=== PATIENT | female | born 1955 | race Caucasian/White ===

== ENCOUNTER → 2019-01-04 17:47 | Outpatient (CLI) | payer MEDICAID, SELFPAY ==
[2019-01-04 18:28] LABS: Amphetamine/Metha Screen,Urine Negative ng/mL (<1000); Barbiturates Screen,Urine Negative ng/mL (<200); Benzodiazepines Screen,Urine Negative ng/mL (<200); Cannabinoid Screen,Urine Negative ng/mL (<50); Cocaine Screen,Urine Negative ng/mL (<300); Methadone Screen,Urine Negative ng/mL (<300); Opiate Screen,Urine Negative ng/mL (<300); Phencyclidine Screen,Urine Negative ng/mL (<25)
== END ==
PROVIDERS: Visit Provider Physician Assistant
DX: Z79.899 Other long term (current) drug therapy (principal)
CPT/HCPCS: 80305

== ENCOUNTER → 2019-02-09 18:01 | Outpatient (CLI) | payer MEDICAID, SELFPAY ==
[2019-02-09 18:29] LABS: Basophils % 0.5 % (0.1-2.0); Eosinophils # 0.1 K/mm3 (0.0-0.4); Eosinophils % 1.5 % (0.1-12.0); Hematocrit 46.1 % (37.0-47.0); Hemoglobin 15.1 g/dL (12.2-16.2); Lymphocytes # 2.2 K/mm3 (0.7-4.5); Lymphocytes % 27.6 % (10-50); Mean Corpuscular HGB Conc 32.6 g/dL (31.8-35.4); Mean Corpuscular Hemoglobin 31.5 pg (27.0-31.2); Mean Corpuscular Volume 96.4 fl (81-99); Mean Platelet Volume 7.8 fl (7.4-10.4); Monocytes # 0.3 K/mm3 (0.1-1.0); Monocytes % 3.8 % (1.7-9.3); Neutrophils # 5.3 K/mm3 (1.8-7.8); Neutrophils % 66.7 % (37.0-80.0); Platelet Count 248 K/mm3 (142-424); Red Blood Count 4.78 M/mm3 (4.20-5.40); Red Cell Distribution Width 14.8 % (11.5-17.5)
[2019-02-09 19:40] LABS: Alanine Aminotransferase 42 U/L (12-78); Albumin/Globulin Ratio 1.1 (1.1-1.8); Alkaline Phosphatase 128 U/L (46-116); Aspartate Amino Transferase 24 U/L (15-37); Bilirubin,Total 0.2 mg/dL (0.2-1.0); Blood Urea Nitrogen 15 mg/dL (7-18); Calcium 9.7 mg/dL (8.5-10.1); Carbon Dioxide 27 mmol/L (21.0-32.0); Chloride 104 mmol/L (98-107); Chol/HDL Ratio 5.2 (1-3.5); Cholesterol 204 mg/dL (140-200); Creatinine,Serum 0.97 mg/dL (0.55-1.02); Estimated Glomerular Filt Rate 58 ml/min (>60); GFR (African American) 70 ML/MIN (>60); Globulin 3.8 gm/dl (1.3-3.2); Glucose 83 mg/dL (74-106); HDL Cholesterol 39 mg/dL (29-89); LDL Cholesterol 114 mg/dL (0-130); Sodium 142 mmol/L (136-145); T4 (Thyroxine) 5.3 ug/dl (4.7-13.3); Total Protein,Serum 7.8 gm/dL (6.4-8.2); Triglycerides 257 mg/dL (30-200); VLDL Cholesterol 51 mg/dL (0-40)
[2019-02-11 13:01] LABS: Vitamin D 25 Hydroxy 13.5 ng/mL (30.0-100.0)
== END ==
PROVIDERS: Visit Provider Physician Assistant
DX: E03.9 Hypothyroidism, unspecified (principal); E78.5 Hyperlipidemia, unspecified
CPT/HCPCS: 80053; 80061; 82652; 84436; 84443; 85025

== ENCOUNTER → 2019-02-22 12:45 | Outpatient (CLI) | payer MEDICAID, SELFPAY ==
--- NOTE | 2019-02-22 12:49 | US_ITS ---
US thyroid HISTORY: ITS.REASON: hypothyroidism ORDERING PHYSICIAN: JHONNY Jay PATIENT AGE: 64 years Comparison: None FINDINGS: The thyroid gland is small. The right lobe is 1.4 x 0.7 x 0.7 cm. The left lobe is 0.8 x 0.5 x 0.7 cm. No discrete mass apparent. IMPRESSION: Small thyroid gland as described above
== END ==
PROVIDERS: PCP Physician Assistant; Visit Provider Physician Assistant
DX: E03.9 Hypothyroidism, unspecified (principal)
CPT/HCPCS: 76536

== ENCOUNTER → 2019-03-24 09:26 | Outpatient (CLI) | payer MEDICAID, SELFPAY ==
--- NOTE | 2019-03-24 09:28 | MM_ITS ---
MM Dig screening mamm BI w/CAD ORDERING PHYSICIAN : JHONNY Gonzalez PATIENT AGE: 64 years GENDER: Female COMPARISON: Outside bilateral mammogram studies from [facility] dated June 2017 and May 2016 .Outside films have now been made available and now in PACS comparison. Staff now requesting my review of the studies INDICATION: Routine: Screening mammogram. No hormones no new complaints laboratory family history. TECHNIQUE: Standard CC and MLO images were obtained. R2 CAD reviewed. FINDINGS: . Minimal residual fibroglandular elements most evident towards the retroareolar region and superior breast, towards upper-outer quadrant Otherwise moderate fatty replacement throughout the deep breast and medial breast bilaterally.. No significant new findings. No dominant mass nor suspicious calcifications either breast. RIGHT BREAST: . Stable breast No significant new findings. No new areas of significant concern. The small area of density in the inferior retroareolar region is stable 2016-not of concern. Stable benign-appearing 9 mm small intramammary lymph node at the at the deep axillary right breast Today's study includes a deeper portion of the breast on MLO view with this I would note some generous benign-appearing node seen at the margin MLO view which was not included previously. These seem to have fatty hilum and benign appearance of these generous size but partially imaged nodes. Suggest thorough palpation of right axilla to exclude any unusual adenopathy clinically If any prominent or firm palpable nodes are encountered clinically ultrasound be utilized to further survey these right axillary nodes if so desired. LEFT BREAST: No new areas of concern. No change since 2017. In (There was rounded density in 2016 outside mammogram which has since resolved at the superior left breast) IMPRESSION: The breast themselves appear stable bilaterally with no significant new findings either breast. Bilateral follow-up mammography one year adequate & recommended. I would note that today's MLO view included deeper portion of the right breast-& partially images some additional generous size benign appearing lymph nodes seen at the margin MLO image-not seen previously.- These seem to have fatty hilum overall benign appearance of these generous size, partially imaged nodes. Period would Suggest thorough palpation of right axilla to exclude any unusual adenopathy clinically . BI-RADS Category: 2 Benign Finding(s) RECOMMENDED FOLLOW-UP: 1YR 1 YEAR FOLLOW-UP . Note additional comments (A letter has been sent to the patient regarding results of the study.) For comparison
== END ==
PROVIDERS: PCP Physician Assistant; Visit Provider Physician Assistant
DX: Z12.31 Encounter for screening mammogram for malignant neoplasm of breast (principal)
CPT/HCPCS: 77067

== ENCOUNTER → 2019-04-19 14:44 | Outpatient (CLI) | payer MEDICAID, SELFPAY ==
[2019-04-19 20:22] LABS: Free T4 (Free Thyroxine) 0.83 ng/dl (0.76-1.46); Thyroid Stimulating Hormone 9.92 uIU/ml (0.358-3.740)
== END ==
PROVIDERS: Visit Provider Physician Assistant
DX: E03.9 Hypothyroidism, unspecified (principal)
CPT/HCPCS: 36415; 84439; 84443

== ENCOUNTER → 2019-05-13 10:56 | Outpatient (CLI) | payer MEDICAID, SELFPAY ==
--- NOTE | 2019-05-13 10:57 | US_ITS ---
US breast RT complete INDICATION: Right breast nodule, follow-up mammogram ORDERING PHYSICIAN: JHONNY Gonzalez PATIENT AGE: 64 years COMPARISON: 03/24/2019 TECHNIQUE: Complete ultrasound of breath performed along with axilla FINDINGS: In the 10:00 region of the right breast there is a complex nodular area with peripheral increase echogenicity in decreased echogenicity centrally. This does not have typical appearance for lymph node and may only represent fibroglandular tissue adjacent to a small lymph node. Six-month follow-up is suggested. No other significant anomalies evident IMPRESSION: Complex area of echogenicity in the 10:00 region right breast which may be due to a small lymph node with surrounding fibroglandular tissue. Recommend 6 month sonographic follow-up. CT of the axilla may be of value if axillary adenopathy is suspected BI-RADS Category: 3 Probably Benign Finding Short Term Follow-up RECOMMENDED FOLLOW-UP: 6M - 6 MONTH FOLLOW-UP (A letter has been sent to the patient regarding results of the study.)
== END ==
PROVIDERS: PCP Physician Assistant; Visit Provider Physician Assistant
DX: R59.0 Localized enlarged lymph nodes (principal)
CPT/HCPCS: 76641

== ENCOUNTER → 2019-07-15 12:36 | Outpatient (CLI) | payer MEDICAID, SELFPAY ==
--- NOTE | 2019-07-15 12:38 | US_ITS ---
PROCEDURE: US FNA BREAST CLINICAL INDICATION: rt breast nodule COMPARISON: DIG MAMM-SCREEN NATALIA from 03/24/2019 BREASTRT US breast RT complete from 05/13/2019 TECHNIQUE: Following obtaining informed consent, using aseptic technique and local anesthesia with buffered lidocaine, fine-needle aspiration was performed of the area of sonographic abnormality in the 10 o'clock region of the right breast. Two passes were made with 21 gauge needle.. Specimen was given to cytology. The patient tolerated the procedure well without evidence FINDINGS: Of immediate complication. CYTOLOGY: Atypical. Atypical spindle cells IMPRESSION: Fine-needle aspiration of the sonographic abnormality in the 10 o'clock region of the right breast shows atypical findings. Ultrasound-guided hook wire localization with excisional biopsy suggested. It is also suggested that the patient have a mammogram before the ultrasound-guided biopsy. The most recent mammogram of 03/24/2019 did not demonstrate any significant abnormality in the right breast. Dictated by: Jair Brownlee MD 07/23/2019 15:21 Electronically signed by Jair Brownlee MD in [place] 07/23/2019 15:21
== END ==
PROVIDERS: PCP Physician Assistant; Visit Provider Surgery
DX: N64.4 Mastodynia; N63.12 Unspecified lump in the right breast, upper inner quadrant
CPT/HCPCS: 10005; 76942

== ENCOUNTER → 2019-07-30 15:12 | Outpatient (CLI) | payer MEDICAID, SELFPAY ==
--- NOTE | 2019-07-30 15:13 | MM_ITS ---
PROCEDURE: MM DIG MAMM DX UNILAT RT CAD CLINICAL INDICATION: rt breast lesion--Radiologist recommended COMPARISON: DIG MAMM-SCREEN NATALIA from 03/24/2019 US FNA BREAST from 07/15/2019 TECHNIQUE: Standard CC and MLO images were obtained. R2 CAD reviewed. FINDINGS: Recent ultrasound-guided fine needle aspiration was performed showing atypical cells. Mammogram is performed for concordance. There is average fibroglandular tissue. No discrete mass is evident in the upper outer aspect of the right breast for the FNA was performed. Asymmetric density is once again noted in the retroareolar region which was described as stable on the previous study. No spiculated lesions are evident. IMPRESSION: No mammographic abnormality that would correspond to the area of sonographic abnormality. This does not change the category however which would be still a category 4 due to the abnormal ultrasound and the abnormal FNA. Ultrasound-guided hookwire localization suggested of the area of atypical cytology. BI-RAD Category: 4 Suspicious Abnormality - Biopsy Considered FOLLOW-UP: BIO Biopsy Recommended (A letter has been sent to the patient regarding results of the study.) Dictated by: Jair Brownlee MD 08/09/2019 17:48 Electronically signed by Jair Brownlee MD in [place] 08/09/2019 17:48
== END ==
PROVIDERS: PCP Physician Assistant; Visit Provider Surgery
DX: N63.10 Unspecified lump in the right breast, unspecified quadrant (principal)
CPT/HCPCS: 77065

== ENCOUNTER → 2019-09-24 16:53 | Outpatient (CLI) | payer MEDICAID, SELFPAY ==
[2019-09-24 18:47] LABS: Free T4 (Free Thyroxine) 1.08 ng/dl (0.76-1.46); Thyroid Stimulating Hormone 2.46 uIU/ml (0.358-3.740)
== END ==
PROVIDERS: Visit Provider Nurse Practitioner Family
DX: E03.9 Hypothyroidism, unspecified (principal)
CPT/HCPCS: 84439; 84443

== ENCOUNTER → 2020-03-30 13:53 | Outpatient (CLI) | payer MEDICAID, SELFPAY ==
--- NOTE | 2020-03-30 13:53 | MM_ITS ---
PROCEDURE: MM DIG SCREENING MAMM BI W/CAD DIGITAL BREAST TOMOSYNTHESIS INCLUDED Patient Age:65Y CLINICAL INDICATION: screening 65-year-old. No hormones but Previous excisional biopsy right breast 9 o'clock position August 2019 Results from the excisional biopsy are not available in PACS and not included history sheet COMPARISON: DIG MAMM-SCREEN NATALIA from 03/24/2019 BREASTRT US breast RT complete from 05/13/2019 US FNA BREAST from 07/15/2019 MM DIG MAMM DX UNILAT RT CAD from 07/30/2019 MM SURGICAL SPECIMEN RT from 08/20/2019 US BREAST NEEDLE LOC RT from 08/20/2019 TECHNIQUE: Standard CC and MLO images were obtained. R2 CAD reviewed. Bilateral digital breast tomosynthesis included. FINDINGS: : Right breast: June 2019 FNA of ill-defined palpable area on ultrasound at right breast, demonstrated an area of atypical cells. Thereafter ultrasound-guided needle localization and excisional biopsy was performed. With this there are now postsurgical changes upper-outer quadrant the anterior breast. (4 surgical clips associated focal area of a density with irregular margins which of corresponds with excisional biopsy site.). This is a notable change from previous studies with fairly dense area attributed currently to the surgery postsurgical scar-however given focally dense appearance and irregular margins I would suggest a follow-up right mammogram in 6-8 months to confirm stability and/or regression of this new area density. Left breast: No new areas of significant concern left breast. Of fibroglandular elements appear to account for the region towards the superior breast on MLO view. At CC view unchanged IMPRESSION: Right breast:: Interval excisional biopsy-now with notable focal density at biopsy site, and attributed to such. However would suggest a follow-up right mammogram 6-9 months to confirm stability/regression given its current irregular focal dense appearance Left breast: Stable. No new areas of concern. Follow-up left mammogram 1 year BI-RAD Category: 3 Probably Benign Finding Short Term Follow-up FOLLOW-UP: 6M-8Month Follow-up right breast (A letter has been sent to the patient regarding results of the study.) Dictated by: Dionisio Dunn MD 04/05/2020 09:04 Electronically signed by Dionisio Dunn MD in [place] 04/05/2020 09:04
== END ==
PROVIDERS: PCP Physician Assistant; Visit Provider Physician Assistant
DX: Z12.31 Encounter for screening mammogram for malignant neoplasm of breast (principal)
CPT/HCPCS: 77063; 77067

== ENCOUNTER → 2020-06-26 06:03 | Outpatient (CLI) | payer MEDICAID, SELFPAY ==
--- NOTE | 2020-06-26 06:14 | XR_ITS ---
PROCEDURE: XR KNEE LT 4V CLINICAL INDICATION: bilateral knee pain COMPARISON: No exams were available for comparison FINDINGS: No fracture or dislocation. No lytic or blastic change. There is normal mineralization. There are minimal osteoarthritic changes of the lateral compartment and patellofemoral joint. There is a faint calcific density along the medial patellar facet possibly due to small loose body at 2 mm. Other findings:None. IMPRESSION: There are minimal osteoarthritic changes of the lateral compartment and patellofemoral joint. There is a faint calcific density along the medial patellar facet possibly due to small loose body at 2 mm. Dictated b Jair Brownlee MD 06/26/2020 06:47 Jair Brownlee MD in [place] 06/26/2020 06:47
--- NOTE | 2020-06-26 06:14 | XR_ITS ---
PROCEDURE: XR KNEE RT 4V CLINICAL INDICATION: bilateral knee pain COMPARISON: CR XR KNEE LT 4V from 06/26/2020 CR XR ANKLE LT MIN 3V from 06/26/2020 FINDINGS: No fracture or dislocation. No lytic or blastic change. There is normal mineralization. Minimal osteoarthritic change lateral compartment and patellofemoral joint. There is increased soft tissue density in the suprapatellar region consistent with knee joint effusion Other findings:Minimal soft tissue calcification present at the medial thigh mid aspect posteriorly which may be vascular. IMPRESSION: Minimal osteoarthritic change lateral compartment and patellofemoral joint. There is increased soft tissue density in the suprapatellar region consistent with knee joint effusion Dictated b Jair Brownlee MD 06/26/2020 06:48 Jair Brownlee MD in [place] 06/26/2020 06:48
--- NOTE | 2020-06-26 06:14 | XR_ITS ---
PROCEDURE: XR ANKLE LT MIN 3V CLINICAL INDICATION: Left ankle pain COMPARISON: No exams were available for comparison FINDINGS: No fracture or dislocation. No lytic or blastic change. There is normal mineralization. The joint spaces are well-preserved. No significant degenerative/arthritic changes. No erosive changes evident. Other findings:None. IMPRESSION: No acute findings. Dictated b Jair Brownlee MD 06/26/2020 06:45 Jair Brownlee MD in [place] 06/26/2020 06:45
[2020-06-26 07:56] LABS: Chloride 106 mmol/L (98-107); Sodium 144 mmol/L (136-145)
[2020-06-26 07:59] LABS: Alanine Aminotransferase 24 U/L (12-78); Albumin Level 4.3 g/dl (3.5-5.0); Albumin/Globulin Ratio 1.3 (1.1-1.8); Alkaline Phosphatase 123 U/L (38-126); Aspartate Amino Transferase 24 U/L (14-36); Bilirubin,Total 0.4 mg/dl (0.2-1.3); Blood Urea Nitrogen 11 mg/dl (7-17); Carbon Dioxide 30 mmol/L (22.0-30.0); Cholesterol 152 mg/dl (140-200); Estimated Glomerular Filt Rate 56 ml/min (>60); GFR (African American) 68 ML/MIN (>60); Globulin 3.2 g/dL (1.3-3.2); Total Protein,Serum 7.5 g/dl (6.3-8.2); Triglycerides 125 mg/dl (30-150); VLDL Cholesterol 25 mg/dL (0-40)
[2020-06-26 08:00] LABS: Calcium 10.5 mg/dl (8.4-10.2); Chol/HDL Ratio 3.4 (1-3.5); Glucose 107 mg/dl (74-100); HDL Cholesterol 45 mg/dl (40-60)
--- NOTE | 2020-06-26 08:04 | CT_ITS ---
PROCEDURE: CT LUMBAR SPINE WO CON CLINICAL HISTORY: LBP The the hold cul de the the the the the COMPARISON: CR Lumbar spine from 04/06/2019 TECHNIQUE: Axial images obtained with sagittal and coronal reformats. All CT scans at the facility use one or more dose reduction, viz: automated exposure control, ma/kV adjustment per patient size (including targeted exams where dose is matched to indication, i.e. head), or iterative reconstruction technique. FINDINGS: Mild lumbar scoliosis convex left. Mild degenerative disc disease T11-T12 and T10-T11. L1-L2 and L2-L3 have an unremarkable appearance. L3-L4: Minimal bulging disc with mild facet ligamentum hypertrophy. L4-5: Mild bulging disc with mild facet and ligamentum hypertrophy. There is mild bilateral foraminal narrowing slightly greater on the right. Facet bony hypertrophy noted. L5-S1: Degenerative disc disease with bulging disc slightly eccentric toward the left with facet hypertrophic change. There is mild bilateral lateral recess and foraminal narrowing slightly greater on the left. No acute fracture or dislocation. No lytic or blastic change. There is mild nonspecific thickening of the sigmoid and rectosigmoid colon the. A neurostimulator device is present entering into the right sacral foramen at the S3-S4 area. There are nonobstructing bilateral renal calculi measuring up to 4 mm on the left and 3 mm on the right. There is a 1.4 cm right adrenal nodule consistent with an adenoma IMPRESSION: 1. Mild lumbar scoliosis with lumbar spondylosis as detailed above. 2. Bilateral nephrolithiasis 3. 1.4 cm right adrenal adenoma Dictated b Jair Brownlee MD 06/26/2020 12:44 Jair Brownlee MD in [place] 06/26/2020 12:44
--- NOTE | 2020-06-26 08:04 | FL_ITS ---
PROCEDURE: FL UPPER GI SERIES W/O AIR CLINICAL INDICATION: GERD Pain and fullness, reflux COMPARISON: No exams were available for comparison TECHNIQUE: FLUOROSCOPY TIME : 1 minutes and 15 seconds FINDINGS: There has been a prior cholecystectomy. There is mild spasm of the cricopharyngeus muscle in the lower cervical area posteriorly. There is a small sliding hiatal hernia. No erosive changes evident P of the esophagus. No mass apparent. The stomach and duodenum have an unremarkable appearance. IMPRESSION: Small sliding hiatal hernia otherwise negative upper GI Dictated b Jair Brownlee MD 06/26/2020 11:03 Jair Brownlee MD in [place] 06/26/2020 11:03
[2020-06-26 08:10] LABS: Direct LDL Cholesterol 78.48 mg/dL (100-129)
[2020-06-26 08:18] LABS: Basophils # 0.1 K/mm3 (0-0.2); Basophils % 0.5 % (0.1-2.0); Eosinophils # 0.2 K/mm3 (0.0-0.4); Hemoglobin 15.1 g/dL (12.2-16.2); Lymphocytes # 2.8 K/mm3 (0.7-4.5); Lymphocytes % 29.5 % (10-50); Mean Corpuscular HGB Conc 33.5 g/dL (31.8-35.4); Mean Corpuscular Hemoglobin 31.6 pg (27.0-31.2); Mean Corpuscular Volume 94.4 fl (81-99); Mean Platelet Volume 7.5 fl (7.4-10.4); Monocytes # 0.3 K/mm3 (0.1-1.0); Monocytes % 3.3 % (1.7-9.3); Neutrophils # 6.1 K/mm3 (1.8-7.8); Neutrophils % 64.7 % (37.0-80.0); Platelet Count 260 K/mm3 (142-424); Red Blood Count 4.77 M/mm3 (4.20-5.40); Red Cell Distribution Width 14.2 % (11.5-17.5); White Blood Count 9.4 K/mm3 (4.8-10.8)
[2020-06-26 08:19] LABS: T4 (Thyroxine) 14.7 ug/dl (5.53-11.0)
[2020-06-26 08:32] LABS: Thyroid Stimulating Hormone 1.33 uIU/mL (0.465-4.68)
[2020-06-27 09:36] LABS: Vitamin B12 251 pg/mL (232-1245)
[2020-06-27 09:37] LABS: Folate 4.9 ng/mL (>3.0)
== END ==
PROVIDERS: PCP Physician Assistant; Visit Provider Physician Assistant
DX: M25.561 Pain in right knee (principal); M25.562 Pain in left knee; M25.572 Pain in left ankle and joints of left foot; R25.1 Tremor, unspecified; M54.5 Low back pain; K21.9 Gastro-esophageal reflux disease without esophagitis
CPT/HCPCS: 36415; 72131; 73564; 73610; 74240; 80053; 80061; 82607; 82746; 84436; 84443; 85025

== ENCOUNTER → 2020-08-16 14:25 | Outpatient (CLI) | payer MEDICAID, SELFPAY ==
[2020-08-17 11:16] LABS: Basophils # 0.1 K/mm3 (0-0.2); Basophils % 0.5 % (0.1-2.0); Eosinophils # 0.1 K/mm3 (0.0-0.4); Hemoglobin 15.7 g/dL (12.2-16.2); Lymphocytes # 2.2 K/mm3 (0.7-4.5); Lymphocytes % 22.5 % (10-50); Mean Corpuscular HGB Conc 33.3 g/dL (31.8-35.4); Mean Corpuscular Hemoglobin 32.1 pg (27.0-31.2); Mean Corpuscular Volume 96.4 fl (81-99); Mean Platelet Volume 10.3 fl (7.4-10.4); Monocytes # 0.4 K/mm3 (0.1-1.0); Monocytes % 4.3 % (1.7-9.3); Neutrophils # 6.9 K/mm3 (1.8-7.8); Neutrophils % 71.7 % (37.0-80.0); Platelet Count 254 K/mm3 (142-424); Red Blood Count 4.88 M/mm3 (4.20-5.40); Red Cell Distribution Width 14.1 % (11.5-17.5); White Blood Count 9.6 K/mm3 (4.8-10.8)
[2020-08-17 12:02] LABS: Alanine Aminotransferase 37 U/L (12-78); Albumin Level 4.1 g/dl (3.5-5.0); Albumin/Globulin Ratio 1.4 (1.1-1.8); Alkaline Phosphatase 127 U/L (38-126); Aspartate Amino Transferase 27 U/L (14-36); Bilirubin,Total 0.5 mg/dl (0.2-1.3); Blood Urea Nitrogen 13 mg/dl (7-17); Calcium 10.2 mg/dl (8.4-10.2); Carbon Dioxide 29 mmol/L (22.0-30.0); Chloride 109 mmol/L (98-107); Chol/HDL Ratio 4.8 (1-3.5); Cholesterol 228 mg/dl (140-200); Estimated Glomerular Filt Rate 63 ml/min (>60); GFR (African American) 76 ML/MIN (>60); Glucose 107 mg/dl (74-100); HDL Cholesterol 48 mg/dl (40-60); Sodium 143 mmol/L (136-145); Total Protein,Serum 7.1 g/dl (6.3-8.2); Triglycerides 187 mg/dl (30-150); VLDL Cholesterol 37 mg/dL (0-40)
[2020-08-17 12:15] LABS: Direct LDL Cholesterol 149.11 mg/dL (100-129)
[2020-08-17 12:20] LABS: 25-OH Vitamin D, Total 20.1 ng/mL (30-100); T4 (Thyroxine) 11.5 ug/dl (5.53-11.0)
[2020-08-17 12:34] LABS: Thyroid Stimulating Hormone 0.08 uIU/mL (0.465-4.68)
[2020-08-17 13:08] LABS: Vitamin B12 214 pg/mL (239-931)
== END ==
PROVIDERS: Visit Provider Physician Assistant
DX: I10 Essential (primary) hypertension (principal); R25.1 Tremor, unspecified; E55.9 Vitamin D deficiency, unspecified; Z79.899 Other long term (current) drug therapy
CPT/HCPCS: 80053; 80061; 82306; 82607; 82746; 84436; 84443; 85025

== ENCOUNTER → 2020-09-12 16:37 | Outpatient (CLI) | payer MEDICAID, SELFPAY | PROVIDERS: Visit Provider Urology | DX: R32 Unspecified urinary incontinence (principal) | CPT/HCPCS: 87086 ==

== ENCOUNTER 2020-09-22 06:53 | Day surgery (SDC) | payer MEDICAID, SELFPAY ==
[2020-09-21 10:50] VITALS: BMI 32.1
[2020-09-22 07:24] VITALS: BP 137/83; PULSE 60; RESP 16; TEMP 36.3; O2SAT 98
[2020-09-22 09:29] LABS: Coronavirus 19 IgG Antibody Negative (Negative); Coronavirus 19 IgM Antibody Negative (Negative)
[2020-09-22 09:31] VITALS: BP 135/74; PULSE 74; RESP 14; TEMP 36.7; O2SAT 97
== END 2020-09-22 09:40 | disposition home or self-care (01) ==
PROVIDERS: PCP Physician Assistant; Visit Provider Urology
PROC: (CPT 52000; principal; 2020-09-22 09:00)
DX: R32 Unspecified urinary incontinence (principal); Z96.0 Presence of urogenital implants; Z87.440 Personal history of urinary (tract) infections; Z88.6 Allergy status to analgesic agent; Z88.1 Allergy status to other antibiotic agents; Z88.0 Allergy status to penicillin; Z79.899 Other long term (current) drug therapy; J44.9 Chronic obstructive pulmonary disease, unspecified; I25.10 Atherosclerotic heart disease of native coronary artery without angina pectoris; M19.90 Unspecified osteoarthritis, unspecified site; M79.7 Fibromyalgia; E03.9 Hypothyroidism, unspecified
CPT/HCPCS: 52000; 36415; 86328

== ENCOUNTER 2020-10-06 07:31 | Day surgery (SDC) | payer MEDICAID, SELFPAY ==
--- NOTE | 2020-09-22 17:34 | P.OP_ITS ---
Date of procedure: 09/22/20 Pre-op Diagnosis:: Urge urinary incontinence Post-op Diagnosis:: Same Procedure performed:: Cystoscopy Surgeon:: Haider Ortez MD Anesthesia: local Estimated blood loss (mL): 0 Clinical Note:: 65-year-old white female with a long history of urge incontinence. She currently has an InterStim device in place but the battery has . She also has some urinary tract infections and cystoscopy is planned today to rule out any intrinsic bladder abnormalities. Operative findings:: Bladder was within normal limits. Operative note:: Patient taken to the treatment room after informed consent was obtained. On the stretcher she was prepped draped in the standard surgical fashion and 2% lidoca ine placed into the urethra. After 5 minutes the flexible cystoscope introduced into the urethra meatus and into the bladder without difficulty. The bladder was examined in a systematic fashion. There is no evidence of mucosal normalities, stones, diverticula or trabeculation. The ureteral orifices in their normal anatomic position with clear reflux of urine. Bladder neck and urethra were within normal limits as well. Scope removed the patient tolerated the procedure well and without complication. Condition: stable Disposition: same day Specimens:: None Complications:: None
[2020-10-03 12:41] VITALS: BMI 32.1
[2020-10-06] VITALS (7 sets, daily range): BP systolic 86–192; BP diastolic 55–119; PULSE 60–99; RESP 18–20; TEMP 36.4–36.6; O2SAT 93–97
[2020-10-06 08:14] LABS: Sodium 145 mmol/L (136-145)
[2020-10-06 08:15] LABS: Chloride 109 mmol/L (98-107); Potassium 3.7 mmoL/L (3.5-5.1)
[2020-10-06 08:16] LABS: Basophils # 0.1 K/mm3 (0-0.2); Basophils % 0.6 % (0.1-2.0); Eosinophils # 0.1 K/mm3 (0.0-0.4); Eosinophils % 1.5 % (0.1-12.0); Hematocrit 45.8 % (37.0-47.0); Hemoglobin 15.1 g/dL (12.2-16.2); Lymphocytes # 2.8 K/mm3 (0.7-4.5); Lymphocytes % 37.5 % (10-50); Mean Corpuscular Hemoglobin 31.8 pg (27.0-31.2); Mean Corpuscular Volume 96.3 fl (81-99); Mean Platelet Volume 7.7 fl (7.4-10.4); Monocytes # 0.3 K/mm3 (0.1-1.0); Monocytes % 3.3 % (1.7-9.3); Neutrophils # 4.3 K/mm3 (1.8-7.8); Neutrophils % 57.2 % (37.0-80.0); Platelet Count 260 K/mm3 (142-424); Red Blood Count 4.76 M/mm3 (4.20-5.40); White Blood Count 7.5 K/mm3 (4.8-10.8)
[2020-10-06 08:17] LABS: Blood Urea Nitrogen 10 mg/dl (7-17); Creatinine Clearance Estimated 83 mL/min (50-200); Estimated Glomerular Filt Rate 56 ml/min (>60); GFR (African American) 68 ML/MIN (>60)
[2020-10-06 08:18] LABS: Anion Gap 12.7 mEq/L (5-15); Carbon Dioxide 27 mmol/L (22.0-30.0); Glucose 112 mg/dl (74-100)
[2020-10-06 08:46] LABS: Coronavirus 19 IgG Antibody Negative (Negative); Coronavirus 19 IgM Antibody Negative (Negative)
[2020-10-06 08:48] LABS: Erythrocyte Sedimentation Rate 16 mm/hr (0-30)
--- NOTE | 2020-10-06 08:54 | HMH.ANESCL ---
[facility] Anesthesia Checklist - Patient Identification Patient Identification: Arm Band, Verbal (Name & ) - Structural Data Admitted From: Home Planned Operative Procedure/s: Insterim removal and replacement of new insterim device Consent for Planned Operative Procedure(s) Verified: Yes Verified Documents: Surgical Consent, History and Physical, Cardiac Clearance - NPO Status Verified Time NPO: 00:00 - Chart Verification Results Verified: CBC, BMP, UA (Urine toxicology) - Additional verifications Anesthesia Reactions: No Hx Blood Transfusions: No Blood Transfusion Reaction: No - Airway Assessment C-Spine Mobility Assessed: Yes TMJ Mobility Assessed: Yes Dentition: Edentulous (dentures removed) - Neurological Assessment Level of Consciousness: Awake, Alert, Appropriate, Follows Commands Hx Seizures: No Numbness or tingling in extremities: No - Anesthesia Plan Anesthesia Risk discussed: Yes Anesthesia Plan: Verified ASA Class: III Anesthesia Type: MAC [facility] History I have reviewed the patient's past medical history: Yes Medical History: Reports:: Anxiety, Asthma, Chronic Obstructive Pulmonary Disease (COPD), Coronary Artery Disease, Gastroesophageal Reflux Disease(GERD), Hyperlipidemia, Hypertension, MRSA Denies:: Cancer, Diabetes Mellitus Type 1, Diabetes Mellitus Type 2, Internal Pacemaker, Seizures *Have you ever received a pneumonia vaccine?: No *Have you received a flu vaccine this season?: No Other Medical History: Reports: Arthritis, Fibromyalgia, Hypothyroidism, Thyroid Disease. Denies: Blood Transfusion Reaction Comment:: SHANTE, angina Anesthesia experience/problems:: None Laterality Cases: Bilateral: Tonsillectomy, Other Other Surgeries: Yes: Cardiac Catheterization, Cardiac Surgery, Cholecystectomy, Colonoscopy, Coronary Stent, EGD, Tubal Ligation, Other. No: Pacemaker Amputation: No Fractures: Yes - *Social History Last grade of school completed: Advanced degree Smoking Status: Current every day smoker Tobacco Type: cigarettes # Packs/Day (cigarettes): 1 Alcohol Intake: former Alcohol Intake Frequency:: holidays/special occasions only Substance Use Type: former substance user, marijuana, crack/cocaine, opiates Last Used Substance: unknown *Occupational Status:: disabled Housing: house Household Members: significant other *Travel in the last 8 weeks: None - Psychiatric History Pschychiatric History:: Reports:: Anxiety Family Hx:: Heart Attack
--- NOTE | 2020-10-06 11:03 | XR_ITS ---
PROCEDURE: XR PELVIS 1-2V CLINICAL INDICATION: BLADDER STIMULATOR COMPARISON: No exams were available for comparison FINDINGS: Fluoroscopy time: 34 seconds. Multiple images are submitted during the procedure. The image shows trans sacral insertion of a urinary bladder stimulator with tip in the mid pelvic region slightly to the right. IMPRESSION: Interval bladder stimulator placement with C-arm guidance Dictated by: Jair Brownlee MD 10/06/2020 17:38 Jair Brownlee MD in [place] 10/06/2020 17:38
[2020-10-06 12:22] LABS: Vitamin B12 222 pg/mL (239-931)
--- NOTE | 2020-10-06 16:17 | HMH.OPNOTE ---
Date of procedure: 10/06/20 Pre-op Diagnosis:: Urge incontinence Post-op Diagnosis:: Urge incontinence Procedure performed:: Removal of previous InterStim electrodes and pulse generator with replacement of full implant using AdWhirlScan MRI technology InterStim device Surgeon:: Haider Ortez MD PAINTING INSTRUCTOR:: Randall Stoner Anesthesia: MAC Estimated blood loss (mL): 5 Clinical Note:: Patient is a 65-year-old white female with history of urge incontinence. She had an InterStim device placed several years ago and it is currently not working due to the age of the battery. Patient also has some musculoskeletal issues that an MRI is recommended but she has been unable to obtain MRI as she has the InterStim implant. Recurrent InterStim battery is out of date not working. She presents for removal of InterStim device and replacement with a new MRI compatible InterStim. Operative findings:: DO device was located and removed without difficulty. The new device was placed without complication. Operative note:: Patient was taken to the operating room after informed consent was obtained. She was placed on the operating room table in the prone position per OR protocol. Monitored anesthesia care was administered. Pillows were placed under the lower abdomen to flatten the sacrum and under the shins to allow the toes to dangle freely. The ground pad was placed on the bottom of the patient's left thigh and the proximal ends of the test stimulation cable were connected to the ground pad and the EMS. Patient was prepped and draped in the usual sterile fashion. The previous upper right buttock incision was opened sharply with a knife after placing local anesthetic. We then used blunt dissection and cautery to open up the pocket where the battery was identified. The battery was removed from the pocket and the setscrew was loosened and the battery was removed from the lead. The lead was then clamped with a Antonella clamp and tugged on and we could see a dimple in the midline where it crossed over and an incision was made over the midline and the lead was identified and brought up through the midline incision. The lead was then grasped and with gentle steady pressure pulled upwards and the lead released intact and in total. The wounds were then irrigated and we proceeded on with placement of the new full InterStim. The C-arm was moved into AP position to provide fluoroscopic guidance of the sacrum. The medial edges of the foramina were identified and marked. C arm was then moved into the lateral position to identify the S3 foramen. Once the needle entry point was determined local injection of lidocaine was administered. Foramen needle was then placed in the superior, medial aspect of the S3 foramen and appropriate needle depth was visualized utilizing fluoroscopy. Proper S3 needle location was confirmed by direct observation of the lifting of the perineum. No plantar flexion was noted but 3 of the test sites were positive for the dariusz. The foramen needle stylette was removed and the directional guide was placed through the needle using the markers on the guide to assure the appropriate depth. The foramen needle was removed by sliding over the directional guide. A small incision was made peripherally to the directional guide through the skin. The lead introducer with dilator was placed over the directional guide and utilizing fluoroscopic guidance the lead introducer was advanced until the radiopaque marker was senior living through the foramen. Dilator was removed along with the directional guide. Using fluoroscopy the tined lead with a bent tip stylette was placed through the introducer until electrodes 2 and 3 straddled the anterior surface of the sacrum. All 4 electrodes were tested, observing dariusz and 3 of the 4 sites. After satisfactory lead positioning was confirmed, the introducer was retracted over the lead under continuous fluoroscopy deploying the tines into presacr
[2020-10-09 14:48] LABS: Anti-Centromere B Antibodies <0.2 AI (0.0-0.9); Anti-Jo-1 <0.2 AI (0.0-0.9); Anti-Smith Antibody <0.2 AI (0.0-0.9); Antichromatin Antibodies <0.2 AI (0.0-0.9); Antiscleroderma-70 Antibodies <0.2 AI (0.0-0.9); RNP Antibodies <0.2 AI (0.0-0.9); Sjogren's Anti-SS-A <0.2 AI (0.0-0.9); Sjogren's Anti-SS-B <0.2 AI (0.0-0.9)
[2020-10-09 14:59] LABS: Anti-DNA (DS) Ab Qn <1 IU/mL (0-9)
== END 2020-10-06 12:43 | disposition home or self-care (01) ==
LOC: OR 07:32
PROVIDERS: Specialist; PCP Physician Assistant; Visit Provider Urology
PROC: (CPT 64590; principal; 2020-10-06 09:00)
DX: R32 Unspecified urinary incontinence (principal); J44.9 Chronic obstructive pulmonary disease, unspecified; I25.10 Atherosclerotic heart disease of native coronary artery without angina pectoris; K21.9 Gastro-esophageal reflux disease without esophagitis; I10 Essential (primary) hypertension; E78.5 Hyperlipidemia, unspecified; M19.90 Unspecified osteoarthritis, unspecified site; Z88.0 Allergy status to penicillin; Z88.1 Allergy status to other antibiotic agents; Z88.6 Allergy status to analgesic agent; Z79.899 Other long term (current) drug therapy; Z72.0 Tobacco use
CPT/HCPCS: 64590; 64561; 36415; 72170; 76000; 80048; 82607; 82746; 85025; 85651; 86225; 86235; 86328; 96374; C1767; C1778

== ENCOUNTER → 2021-04-03 10:58 | Outpatient (POV) | payer MEDICARE, MEDICAID, SELFPAY | PROVIDERS: Visit Provider Dermatology | DX: Z00.00 Encounter for general adult medical examination without abnormal findings (principal) ==

== ENCOUNTER → 2021-07-02 15:16 | Outpatient (CLI) | payer MEDICARE, MEDICAID, SELFPAY ==
--- NOTE | 2021-07-02 15:22 | MM_ITS ---
PROCEDURE: MM DIG SCREENING MAMM BI W/CAD Digital Breast Tomosynthesis Included CLINICAL INDICATION: Breast cancer screening COMPARISON: MG DIG MAMM-SCREEN NATALIA from 03/24/2019 MG MM DIG MAMM DX UNILAT RT CAD from 07/30/2019 MG MM SURGICAL SPECIMEN RT from 08/20/2019 MG MM DIG SCREENING MAMM BI W/CAD from 03/30/2020 TECHNIQUE: Standard CC and MLO images and 3D Tomosynthesis was obtained. R2 CAD reviewed. FINDINGS: Mostly fatty replaced fibroglandular tissue. Postsurgical changes of the right breast with benign-appearing nodule in the upper outer aspect No suspicious appearing mass, malignant-appearing microcalcification, architectural distortion, or skin thickening. No change. IMPRESSION: Benign findings. No evidence of malignancy BI-RAD Category: 2 Benign Finding FOLLOW-UP: 1 YR 1 Year Follow-up (A letter has been sent to the patient regarding results of the study.) Dictated by: Jair Brownlee MD 07/06/2021 15:18 Jair Brownlee MD in [place] 07/06/2021 15:18
[2021-07-04 08:21] LABS: HIV Screen 4th Generation wRfx Non Reactive (Non Reactive); Hep A Ab, IgM Negative (Negative); Hepatitis B Core Antibody IgM Negative (Negative); Hepatitis B Surface Antigen Negative (Negative); Hepatitis C Antibody <0.1 s/co ratio (0.0-0.9)
[2021-07-04 10:20] LABS: Rapid Plasma Reagin Ab Titer Non Reactive (NonRea<1:1)
[2021-07-05 00:07] LABS: Neisseria gonorrhoeae, NAA Negative (Negative)
== END ==
PROVIDERS: PCP Physician Assistant; Visit Provider Physician Assistant
DX: Z12.31 Encounter for screening mammogram for malignant neoplasm of breast (principal); R53.83 Other fatigue; Z20.2 Contact with and (suspected) exposure to infections with a predominantly sexual mode of transmission; Z11.4 Encounter for screening for human immunodeficiency virus [HIV]
CPT/HCPCS: 77063; 77067; 80074; 86592; 86695; 86703; 86790; 87491; 87591; G0432

== ENCOUNTER 2021-07-14 11:28 | Emergency (ER) | payer MEDICARE, MEDICAID, SELFPAY ==
[2021-07-14 11:30] VITALS: BP 120/69; PULSE 88; RESP 18; TEMP 36.6; O2SAT 95; BMI 30.8
[2021-07-14 12:35] VITALS: PULSE 88; RESP 18; TEMP 37; O2SAT 100; BMI 30.9
[2021-07-14 13:35] VITALS: BP 146/78; PULSE 78; RESP 16; TEMP 36.6; O2SAT 94
== END 2021-07-14 13:38 | disposition home or self-care (01) ==
LOC: UTC 11:46 → ER 12:50
PROVIDERS: Emergency Provider Emergency Medicine; PCP Physician Assistant
DX: R07.89 Other chest pain (principal)
CPT/HCPCS: G0463; 99202

== ENCOUNTER 2021-07-23 13:44 | Inpatient (IN) | payer MEDICAID, MEDICARE, SELFPAY ==
[2021-07-23] VITALS (9 sets, daily range): BP systolic 101–125; BP diastolic 53–98; PULSE 67–99; RESP 16–30; TEMP 36.6–36.8; O2SAT 88–98; BMI 29.7; BMI 29.0
--- NOTE | 2021-07-23 13:59 | XR_ITS ---
PROCEDURE INFORMATION: Exam: XR Chest Exam date and time: 07/23/2021 1:59 PM Age: 66 years old Clinical indication: Patient HX: Covid +, dyspnea; Additional info: Dyspnea, covid+ TECHNIQUE: Imaging protocol: XR of the chest. Views: 1 view. COMPARISON: CR Ribs L 04/06/2019 11:32 PM FINDINGS: Lungs: Bilateral mid and lower lung zone, peripherally predominant, streaky ground-glass opacities, most compatible with multifocal pneumonia. Atypical viral pneumonia, such as COVID-19, could have this appearance. Pleural spaces: Unremarkable. No pleural effusion. No pneumothorax. Heart/Mediastinum: Normal. Bones/joints: No acute abnormality. IMPRESSION: Bilateral mid and lower lung zone, peripherally predominant, streaky ground-glass opacities, most compatible with multifocal pneumonia. Atypical viral pneumonia, such as COVID-19, could have this appearance.
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
[2021-07-23 14:37] LABS: Influenza A, PCR Not Detected (NotDetected); Influenza B, PCR Not Detected (NotDetected)
[2021-07-23 14:40] LABS: Basophils % 0.4 % (0.1-2.0); Eosinophils % 0.1 % (0.1-12.0); Hematocrit 38.3 % (37.0-47.0); Hemoglobin 12.9 g/dL (12.2-16.2); Lymphocytes # 0.9 K/mm3 (0.7-4.5); Lymphocytes % 12.1 % (10-50); Mean Corpuscular HGB Conc 33.7 g/dL (31.8-35.4); Mean Corpuscular Volume 95.1 fl (81-99); Mean Platelet Volume 8.7 fl (7.4-10.4); Monocytes # 0.3 K/mm3 (0.1-1.0); Monocytes % 4.1 % (1.7-9.3); Neutrophils # 6.2 K/mm3 (1.8-7.8); Neutrophils % 83.3 % (37.0-80.0); Platelet Count 408 K/mm3 (142-424); Red Blood Count 4.03 M/mm3 (4.20-5.40); Red Cell Distribution Width 14.4 % (11.5-17.5); White Blood Count 7.5 K/mm3 (4.8-10.8)
[2021-07-23 14:50] LABS: Chloride 100 mmol/L (98-107); Sodium 137 mmol/L (136-145)
[2021-07-23 14:53] LABS: Alanine Aminotransferase 124 U/L (12-78); Alkaline Phosphatase 149 U/L (38-126); Aspartate Amino Transferase 114 U/L (14-36); Bilirubin,Total 0.9 mg/dl (0.2-1.3); Blood Urea Nitrogen 11 mg/dl (7-17); Creatinine Clearance Estimated 76 mL/min (50-200); Estimated Glomerular Filt Rate 63 ml/min (>60); GFR (African American) 76 ML/MIN (>60); Potassium 3.2 mmoL/L (3.5-5.1)
[2021-07-23 14:54] LABS: Albumin Level 3.5 g/dl (3.5-5.0); Anion Gap 12.2 mEq/L (5-15); Calcium 9.1 mg/dl (8.4-10.2); Carbon Dioxide 28 mmol/L (22.0-30.0); Globulin 3.6 g/dL (1.3-3.2); Glucose 117 mg/dl (74-100); Total Protein,Serum 7.1 g/dl (6.3-8.2)
--- NOTE | 2021-07-23 14:56 | ECG_ITS ---
APPROVED REPORT Exam: Resting ECG HR:89 bpm ECG Measurements Heart Rate 89 AXES MO 116 P 41 QRSd 84 QRS 26 QT 400 T 46 QTc 486 Conclusion Normal sinus rhythm Normal ECG Electronically signed by : Chin Luna MD 07/23/2021 20:37:31
[2021-07-23 15:03] LABS: NT Pro Brain Natriuretic Pep. 121 pg/mL (0-125)
[2021-07-23 15:04] LABS: Coronavirus 19, PCR Detected (NotDetected)
--- NOTE | 2021-07-23 15:16 | PC.NURSE ---
Dr Sergio alcala
[2021-07-23 15:19] LABS: Troponin I < 0.01 ng/ml (0.00-0.034)
[2021-07-23 18:37] LABS: Troponin I < 0.01 ng/ml (0.00-0.034)
--- NOTE | 2021-07-23 18:58 | PC.NURSE ---
ORDERS HAVE BEEN FAXED TO NIGHT WATCH MULTIPLE TIMES WITH NO MEDS APPEARING ON MAR
--- NOTE | 2021-07-23 19:26 | PC.NURSE ---
NEW ADMIT TODAY, SHE DID C/O RIB PAIN AND WAS GIVEN ACETAMINOPHEN PER MAR WITH GOOD EFFECTIVENESS NOTED, 4 LNC WITH SATS 95% OR ABOVE. VSS SINCE ARRIVAL TO THE FLOOR.
--- NOTE | 2021-07-23 19:31 | PC.NURSE ---
PAGED NIGHT WATCH AGAIN. NO RESPONSE.
[2021-07-23 20:00] LABS: POC Glucose,Bedside 102 (70-110)
[2021-07-24] VITALS (7 sets, daily range): BP systolic 116–147; BP diastolic 67–91; PULSE 69–87; RESP 16–20; TEMP 36.4–36.8; O2SAT 92–97; BMI 29.1
--- NOTE | 2021-07-24 03:45 | PC.NURSE ---
Shift summary. Pt has tolerated 4 L nc well t/o shift with sats above 94%. Pt has not voiced any complaints to staff t/o shift. Pt currently resting in bed. Call light within reach. Will continue to monitor.
[2021-07-24 07:04] LABS: Alanine Aminotransferase 106 U/L (12-78); Albumin Level 3.2 g/dl (3.5-5.0); Albumin/Globulin Ratio 0.9 (1.1-1.8); Alkaline Phosphatase 133 U/L (38-126); Anion Gap 13.2 mEq/L (5-15); Aspartate Amino Transferase 84 U/L (14-36); Bilirubin,Total 0.6 mg/dl (0.2-1.3); Blood Urea Nitrogen 14 mg/dl (7-17); Calcium 8.9 mg/dl (8.4-10.2); Carbon Dioxide 26 mmol/L (22.0-30.0); Chloride 103 mmol/L (98-107); Creatinine Clearance Estimated 75 mL/min (50-200); Estimated Glomerular Filt Rate 84 ml/min (>60); GFR (African American) 102 ML/MIN (>60); Globulin 3.5 g/dL (1.3-3.2); Glucose 154 mg/dl (74-100); Potassium 3.2 mmoL/L (3.5-5.1); Sodium 139 mmol/L (136-145); Total Protein,Serum 6.7 g/dl (6.3-8.2)
--- NOTE | 2021-07-24 07:27 | HMH.PHAVTE ---
[facility] Pharmacy VTE Monitoring - Patient Demographics Admission date: 07/23/21 Report Date: 07/24/21 Time: 07:27 Allergies/Adverse Reactions: Patient Allergies levofloxacin Allergy (Severe, Verified 07/17/21 14:27) Swelling of Lip/Tongue/Throat codeine Allergy (Mild, Verified 07/17/21 14:27) Nausea penicillin G Allergy (Mild, Verified 07/17/21 14:27) Hives erythromycin base Allergy (Verified 07/17/21 14:27) Height: 1.7 m Weight: 84.17 kg Patient Problems: Current Active Problems Pneumonia due to COVID-19 virus (Acute) Hypoxemia (Acute) - VTE Risk Labs: VTE Related Lab Results Hgb 12.9 g/dL (12.2-16.2) 07/23/21 14:10 Hct 38.3 % (37.0-47.0) 07/23/21 14:10 Plt Count 408 K/mm3 (142-424) 07/23/21 14:10 BUN 14 mg/dl (7-17) D 07/24/21 06:10 Creatinine 0.70 mg/dl (0.52-1.04) D 07/24/21 06:10 Estimated Creat Clear 75 mL/min (50-200) 07/24/21 06:10 - Prophylaxis VTE Prophylaxis Ordered?: Yes Types of VTE Prophylaxis: TEDS Knee High Location of Applied Device: Bilateral Lower Extremeties
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
--- NOTE | 2021-07-24 09:04 | HMH.PHAINT ---
MEDICATION RECONCILIATION COMPLETED USING EXTERNAL PHARMACY FILL HISTORY AND PATIENT OFFICE VISIT HISTORY.
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
--- NOTE | 2021-07-24 10:24 | CA_ITS ---
APPROVED REPORT EXAM: Comprehensive 2D, Doppler, and color-flow Echocardiogram Nuclear Medicine Specialist: PATRICIA Burgos, RVS Ht: 5 ft 6 in Wt: 185lbs BSA: 1.93 BP: 147/91 mmHg Indications: COVID, SOA,COPD,CAD,Smoker, HTN, HLD, GERD Echo Enhancing Agent Comments: Technically limited due to Patient:Movement, inability to be positioned-Scanned seated upright, Intolerance to exam due to pain and coughing. 2D Dimensions IVSd 1.26 cm LVEF (Visual) 47.70 % PWd 1.05 cm LA Volume 27.20 mL LVDd 3.71 cm LA Volume Index 14.404289 mL/m2 (M/F) 16-34 LVDs 2.84 cm LVOT 1.83 cm (M/F) 1.5-2.5 M-Mode Dimensions LA Diam 3.24 cm (1.9-4.0) Ao Diam 2.97 cm (2.0-3.7) TAPSE 1.62 (<1.7) LV Diastology E Decel Time 110.00 (160-240 msec) E/A Ratio 0.83 MED E' 7.60 (< 7 cm/sec) MED A' 10.60 cm/s E'/MED E' Ratio 8.68 (>14) LAT E' 8.90 (<10 cm/sec) LAT A' 12.20 cm/s E/LAT E' Ratio 7.42 (>14) Aortic Valve LVOT Max 127.00 (70-110 cm/s) LVOT VTI 23.67 cm AoV Peak Adama. 134.00 (50-130 cm/s) AO Peak GR. 7.20 mmHg AO Mean GR. 3.60 (<5 mmHg) AO VTI 23.86 (18-25 cm) DAMON (VTI) 2.61 (2.5-4.5 cm2) Mitral Valve MV E Max Adama. 66.00 (40-130 cm/s) MV A Velocity 80.00 (40-130 cm/s) E/A Ratio 0.83 MV Decel. Time 110.00 (160-240 ms) MV PHT 32.00 ms Pulmonary Valve PV Peak Velocity 48.00 (50-150 cm/s) Tricuspid Valve TR P. Velocity 211.00 cm/s RAP Estimate 10.00 mmHg RVSP 27.90 mmHg Left Ventricle Technically difficult study because of the patient factors and poor acoustic windows. Left atrium is mildly enlarged, left ventricle is normal size, mild concentric left ventricular hypertrophy, visually estimated ejection fraction 55% with no regional wall motion abnormality, grade 1 diastolic dysfunction seen without tissue Doppler evidence of raise left atrial pressure. Right Ventricle Right atrium and right ventricle is mildly enlarged with normal contractility. Aortic Valve Aortic valve is minimally thickened and fibrosed, there is no aortic stenosis or aortic insufficiency. Mitral Valve Mitral valve grossly normal, there is trace mitral regurgitation. Tricuspid Valve Tricuspid valve grossly normal, there is trace tricuspid regurgitation, tricuspid regurgitation jet velocity is inadequate for calculation of the right ventricular systolic pressure. Pulmonic Valve Pulmonic valve is poorly visualized. Great Vessels Aortic root is normal size. Pericardium No significant pericardial effusion noted. Conclusion 1. Technically difficult study because of the patient factors and poor acoustic windows. Mild biatrial enlargement, normal left ventricular size, mild concentric left ventricular hypertrophy, visually estimated ejection fraction 55% with no regional wall motion abnormality, grade 1 diastolic dysfunction seen without tissue Doppler evidence of raise left atrial pressure. 2. Mildly enlarged right ventricle with normal contractility. 3. Trace mitral and tricuspid regurgitation. 4. No significant pericardial effusion noted. Electronically signed by : Yogesh Lugo MD 07/24/2021 19:09:47
--- NOTE | 2021-07-24 12:51 | HMH.PULMCON ---
*Admission Date: 07/23/21 *Reason for consult:: COVID-19 pneumonia, acute hypoxic respiratory failure *History of present illness: Ms. Rangel is 66-year-old female greater than [id number] smoking history, used to smoke 1 to 2 packs a day currently decreased to around half pack a day as per the patient uses Advair inhaler at baseline presented to the hospital worsening respiratory distress and found to be COVID-19 positive needing oxygen supplementation to maintain O2 saturations and pulmonary was called for further management. Patient also claims to be COVID-19 +2 weeks ago which we cannot confirm at this point of time. Patient also claims that she was supposed to be using her oxygen however been noncompliant with that. [facility] History Medical History: Reports:: Anxiety, Asthma, Chronic Obstructive Pulmonary Disease (COPD), Coronary Artery Disease, Gastroesophageal Reflux Disease(GERD), Hyperlipidemia, Hypertension, MRSA Denies:: Cancer, Diabetes Mellitus Type 1, Diabetes Mellitus Type 2, Internal Pacemaker, Seizures *Have you ever received a pneumonia vaccine?: No *Have you received a flu vaccine this season?: No Other Medical History: Reports: Arthritis, Fibromyalgia, Hypothyroidism, Thyroid Disease. Denies: Blood Transfusion Reaction Laterality Cases: Bilateral: Tonsillectomy, Other Other Surgeries: Yes: Cardiac Catheterization, Cardiac Surgery, Cholecystectomy, Colonoscopy, Coronary Stent, EGD, Tubal Ligation, Other. No: Pacemaker Amputation: No Fractures: Yes - *Social History Last grade of school completed: High school graduate Smoking Status: Heavy tobacco smoker Tobacco Type: cigarettes # Packs/Day (cigarettes): 1 Alcohol Intake: never Alcohol Intake Frequency:: holidays/special occasions only Substance Use Type: former substance user, marijuana, crack/cocaine, opiates *Occupational Status:: retired Housing: house Household Members: significant other *Travel in the last 8 weeks: None - Psychiatric History Pschychiatric History:: Reports:: Anxiety Family Hx:: Heart Attack ROS - Cons Denies body ache(s), Denies chills - Card Reports shortness of breath, Reports shortness of breath with activity, Denies leg swelling - Resp Respiratory: Reports shortness of breath, Reports chest congestion, Reports cough, Reports non-productive cough, Reports dyspnea on exertion - GI Gastrointestingal: Denies: abdominal pain - [place] Musculoskeletal: Reports back pain - Psych Reports abnormal sleep pattern Meds Home Medications Medication Instructions Recorded Confirmed Type atorvastatin 80 mg tablet 80 mg PO QHS #90 tab 02/12/21 07/23/21 Rx buspirone 15 mg tablet 15 mg PO BID #180 tab 02/12/21 07/23/21 Rx fluticasone 250 mcg-salmeterol 50 1 inh INHALATION BID #60 each 02/12/21 07/23/21 Rx mcg/dose blistr powdr for inhalation nitroglycerin 0.4 mg sublingual 0.4 mg SUBLINGUAL Q5-15M PRN #25 02/12/21 07/23/21 Rx tablet tab permethrin 5 % topical cream 1 applic TOPICAL Q14D 0 Days #60 g 04/23/21 07/23/21 Rx ergocalciferol (vitamin D2) 1,250 50,000 unit PO QWEEK #14 cap 05/08/21 07/23/21 Rx mcg (50,000 unit) capsule gabapentin 600 mg tablet 600 mg PO TID #90 tab 05/08/21 07/23/21 Rx clonazepam 1 mg tablet 1 mg PO BID PRN #60 tab 07/02/21 07/23/21 Rx Levothyroxine Sodium [Synthroid 125 mcg PO DAILY 07/23/21 07/24/21 History 125mcg (0.125mg) tablet] Omeprazole 40 mg PO BID 07/23/21 07/24/21 History Albuterol Sulfate [Proair 2 puffs IH Q4-6H PRN 07/24/21 07/24/21 History Respiclick] Cholecalciferol (Vitamin D3) 1 cap PO DAILY 07/24/21 07/24/21 History [Vitamin D3 1,000 Unit Cap] Clopidogrel Bisulfate [Plavix] 75 mg PO DAILY 07/24/21 07/23/21 History Isosorbide Mononitrate [Isosorbide 120 mg PO DAILY 07/24/21 07/23/21 History Mononitrate ER] Metoprolol Succinate [Metoprolol 50 mg PO DAILY 07/24/21 07/23/21 History Succinate 50mg Tablet*] Promethazine HCl [Phenergan 25mg 25 mg PO Q4HP PRN 07/24/21 07/24/21
[2021-07-24 19:58] LABS: C-Reactive Protein 104.6 mg/L (0-4)
[2021-07-24 20:00] LABS: D-Dimer 0.79 ug/mL (0.0-0.5)
[2021-07-24 21:11] LABS: Ferritin 2610 ng/ml (11.1-264)
[2021-07-25] VITALS (7 sets, daily range): BP systolic 102–138; BP diastolic 54–73; PULSE 65–76; RESP 16–18; TEMP 35.8–36.9; O2SAT 90–95; BMI 29.2; BMI 29.4
--- NOTE | 2021-07-25 03:38 | PC.NURSE ---
A&OX4. PT IS NOW DOWN TO 3LNC, O2 SAT IN LOW-MID 90S. UP INDEPENDENTLY IN ROOM. PT HAS C/O INTERMITTENT RIB PAIN. TX PER JAN. PT HAS SLEPT INTERMITTENTLY. VSS WILL CONTINUE TO MONITOR AND WEAN 02 TOLERATED.
[2021-07-25 07:13] LABS: Basophils # 0.1 K/mm3 (0-0.2); Eosinophils % 0.4 % (0.1-12.0); Hematocrit 39.1 % (37.0-47.0); Hemoglobin 12.9 g/dL (12.2-16.2); Lymphocytes % 9.8 % (10-50); Mean Corpuscular HGB Conc 32.9 g/dL (31.8-35.4); Mean Corpuscular Hemoglobin 31.7 pg (27.0-31.2); Mean Corpuscular Volume 96.4 fl (81-99); Mean Platelet Volume 9.9 fl (7.4-10.4); Monocytes # 0.6 K/mm3 (0.1-1.0); Monocytes % 5.7 % (1.7-9.3); Neutrophils # 8.3 K/mm3 (1.8-7.8); Neutrophils % 83.1 % (37.0-80.0); Platelet Count 517 K/mm3 (142-424); Red Blood Count 4.06 M/mm3 (4.20-5.40); Red Cell Distribution Width 14.4 % (11.5-17.5); White Blood Count 9.9 K/mm3 (4.8-10.8)
[2021-07-25 07:29] LABS: Blood Urea Nitrogen 22 mg/dl (7-17); Calcium 9.1 mg/dl (8.4-10.2); Carbon Dioxide 28 mmol/L (22.0-30.0); Chloride 102 mmol/L (98-107); Creatinine Clearance Estimated 75 mL/min (50-200); Estimated Glomerular Filt Rate 72 ml/min (>60); GFR (African American) 87 ML/MIN (>60); Glucose 121 mg/dl (74-100); Sodium 139 mmol/L (136-145)
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
--- NOTE | 2021-07-25 08:52 | HMH.PULMPN ---
Internal Medicine - PN: Subj *Date: 07/25/21 *Time: 11:46 Interval history: Patient admits improvement in her respiratory status however complains of worsening nausea and abdominal discomfort Exam - Constitutional Constitutional:: Present: no acute distress, comfortable - HENMT Exam HENMT: Present: normocephalic, atraumatic - Eye Exam Eyes:: Present: normal appearance both eyes and related structures - Neck Exam Neck:: Present: normal visual inspection - Respiratory Exam Respiratory:: Present: able to speak in complete sentences, no respiratory distress, crackles - Cardiovascular Exam Cardiac:: Present: S1, S2 - GI Exam GI:: Present: soft, no tenderness - Skin Exam Skin: Present: warm, no rash - Neurological Exam Neurological: Present: alert, awake - Extremities Exam Extremities: Present: no cyanosis, no clubbing, no edema Assessment and Plan (1) Pneumonia due to COVID-19 virus Status: Acute Category: Medical Code(s): U07.1 - COVID-19; J12.82 - Pneumonia due to coronavirus disease 2019 (2) Abnormal liver enzymes Status: Acute Category: Medical Code(s): R74.8 - Abnormal levels of other serum enzymes (3) Fibromyalgia Status: Chronic Category: Medical Code(s): M79.7 - Fibromyalgia (4) CAD (coronary artery disease) Status: Chronic Qualifiers: Coronary Disease-Associated Artery/Lesion type: unspecified vessel or lesion type [place] vs. transplanted heart: unspecified whether [place] or transplanted heart Associated angina: angina presence unspecified Category: Medical Code(s): I25.10 - Atherosclerotic heart disease of [place] coronary artery without angina pectoris (5) COPD (chronic obstructive pulmonary disease) Status: Chronic Qualifiers: COPD type: unspecified COPD Qualified Code(s): J44.9 - Chronic obstructive pulmonary disease, unspecified Category: Medical Code(s): J44.9 - Chronic obstructive pulmonary disease, unspecified (6) GERD (gastroesophageal reflux disease) Status: Chronic Qualifiers: Esophagitis presence: esophagitis presence not specified Qualified Code(s): K21.9 - Gastro-esophageal reflux disease without esophagitis Category: Medical Code(s): K21.9 - Gastro-esophageal reflux disease without esophagitis - Assessment and plan all Dx Assessment and Plan for all problems:: #COPD: #COVID-19 pneumonia: History 66-year-old female greater than [id number] smoking she carries a diagnosis COPD, supposed to be on home inhaler therapy as per the patient presented to the hospital worsening respiratory distress and found to be COVID-19 positive. Patient also claims that she was tested positive for COVID-19 went to visit which were not confirmed at this point of time given complaining of respiratory distress we will proceed with treatment concerned this is a new infection and will confirm her prior COVID-19 status as we cannot rule out the positive testing here on this admission is a false positive. Chest x-ray bilateral patchy opacities possible atelectasis/streaky infiltrates. D-dimer mildly elevated 0.79. CRP elevated at 104. Chest clear to auscultate with mild basilar crackles. This morning on 3 L nasal cannula saturating 93%. Admits improvement in her respiratory status however complains of worsening nausea and abdominal discomfort Plan: - Continue ceftriaxone azithromycin for possible community-acquired pneumonia, can be de-escalate levofloxacin on discharge - f/u Nasal MRSA PCR - Continue on remdesivir and dexamethasone for COVID-19 pneumonia. - Advair 500 BID scheduled and DuoNebs every 6 hours PRN - Incentive spirometry every 4 hours #Thank you for involving pulmonary in this patient care. We will continue to follow.
--- NOTE | 2021-07-25 09:10 | CT_ITS ---
PROCEDURE: CT ANGIO CHEST PE PROTOCOL CLINCIAL INDICATION: r/o pe Shortness of air, Covid19 COMPARISON: CR XR CHEST PORTABLE from 07/23/2021 TECHNIQUE: IV Contrast: 70ML Isovue 370 Axial images obtained with sagittal and coronal reformats. All CT scans at the facility use one or more dose reduction, viz: automated exposure control, ma/kV adjustment per patient size (including targeted exams where dose is matched to indication, i.e. head), or iterative reconstruction technique. FINDINGS: HEART AND MEDIASTINAL STRUCTURES: No evidence of pulmonary embolus, aortic aneurysm, or aortic dissection. LUNGS AND PLEURAL SPACES: Multifocal predominantly peripheral ground-glass opacities are present in both upper and lower lobes with scattered areas of atelectatic change and with consolidation in the right lung base consistent with viral/Covid19 pneumonia. No evidence of pneumothorax. No pleural effusions. BONY STRUCTURES: Acute fractures are present involving the left 3rd through 9th ribs laterally. The fracture is minimally offset at the 6 7th and 8th ribs. There is some underlying soft tissue swelling associated with the rib fractures. UPPER ABDOMEN: Unremarkable. ADDITIONAL FINDINGS: No other significant abnormalities. IMPRESSION: 1. No evidence of pulmonary embolus. 2. Multifocal ground-glass infiltrates with consolidation in the right lower lobe and scattered areas of atelectasis consistent with Covid19/viral pneumonia 3. Acute appearing left 3rd through 9th rib fractures Dictated by: Jair Brownlee MD 07/25/2021 12:10 Jair Brownlee MD in [facility] 07/25/2021 12:10
--- NOTE | 2021-07-25 09:21 | HMH.ITSTN ---
RN working on a new IV for CT
--- NOTE | 2021-07-25 19:44 | HMH.ACPN2 ---
Internal Medicine - PN: Subj *Date: 07/25/21 *Time: 08:45 Interval history: pt c/o nausea Exam Vital signs and Labs for Last 24 Hours: Temp Pulse Resp BP Pulse Ox 97.2 F L 68 18 117/69 92 L 07/25/21 16:00 07/25/21 16:00 07/25/21 16:00 07/25/21 16:00 07/25/21 18:19 Laboratory Results - last 24 hr 07/24/21 19:27: D-Dimer 0.79 H 07/24/21 19:27: Ferritin 2610 H, C-Reactive Protein 104.6 H 07/25/21 06:32: WBC 9.9 D, RBC 4.06 L, Hgb 12.9, Hct 39.1, MCV 96.4, MCH 31.7 H, MCHC 32.9, RDW 14.4, Plt Count 517 H D, MPV 9.9, Neut % (Auto) 83.1 H, Lymph % (Auto) 9.8 L, [place] % (Auto) 5.7, Eos % (Auto) 0.4, Baso % (Auto) 1.0, Neut # (Auto) 8.3 H, Lymph # (Auto) 1.0, [place] # (Auto) 0.6, Eos # (Auto) 0.0, Baso # (Auto) 0.1 07/25/21 06:32: Sodium 139, Potassium 3.0 L, Chloride 102, Carbon Dioxide 28, Anion Gap 12.0, BUN 22 H D, Creatinine 0.80, Estimated Creat Clear 75, Estimated GFR 72, Est GFR ( Amer) 87, Glucose 121 H, Calcium 9.1 I & O for Last 24 hours: Intake & Output 07/23/21 07/24/21 07/25/21 07/26/21 11:59 11:59 11:59 11:59 Intake Total 360 / 360 900 / 900 820 / 820 Balance 360 / 360 900 / 900 820 / 820 Weight 185 lb 9.009 oz 187 lb 6.287 oz - Constitutional no acute distress - *Routine HEENT Exam Head: Present: normocephalic Eye: Present: PERRL ENT: Present: mucous membranes moist - *Routine Neck Exam Present: supple. Absent: lymphadenopathy - *Routine Respiratory Exam Present: decreased breath sounds, rhonchi - *Routine Cardiovascular Exam Present: RRR - *Routine Abdominal Exam Present: soft, normoactive bowel sounds. Absent: tenderness - *Routine Extremities Exam Present: normal capillary refill. Absent: cyanosis, clubbing, edema - *Routine Skin Exam Present: warm. Absent: rash - *Routine Neurological Exam Present: alert, oriented X3 - Routine Psychiatric Exam Present: normal affect Assessment and Plan (1) Pneumonia due to COVID-19 virus Status: Acute Category: Medical Code(s): U07.1 - COVID-19; J12.82 - Pneumonia due to coronavirus disease 2019 (2) Abnormal liver enzymes Status: Acute Category: Medical Code(s): R74.8 - Abnormal levels of other serum enzymes (3) Fibromyalgia Status: Chronic Category: Medical Code(s): M79.7 - Fibromyalgia (4) CAD (coronary artery disease) Status: Chronic Qualifiers: Coronary Disease-Associated Artery/Lesion type: unspecified vessel or lesion type [place] vs. transplanted heart: unspecified whether [place] or transplanted heart Associated angina: angina presence unspecified Category: Medical Code(s): I25.10 - Atherosclerotic heart disease of [place] coronary artery without angina pectoris (5) COPD (chronic obstructive pulmonary disease) Status: Chronic Qualifiers: COPD type: unspecified COPD Qualified Code(s): J44.9 - Chronic obstructive pulmonary disease, unspecified Category: Medical Code(s): J44.9 - Chronic obstructive pulmonary disease, unspecified (6) GERD (gastroesophageal reflux disease) Status: Chronic Qualifiers: Esophagitis presence: esophagitis presence not specified Qualified Code(s): K21.9 - Gastro-esophageal reflux disease without esophagitis Category: Medical Code(s): K21.9 - Gastro-esophageal reflux disease without esophagitis (7) Rib fracture Status: Acute Qualifiers: Encounter type: initial encounter Rib fracture type: multiple ribs Fracture type: closed Laterality: left Qualified Code(s): S22.42XA - Multiple fractures of ribs, left side, initial encounter for closed fracture Category: Medical Code(s): S22.39XA - Fracture of one rib, unspecified side, initial encounter for closed fracture - Assessment and plan all Dx Assessment and Plan for all problems:: rounded with dr muhammad all orders per dr muhammad ct chest r/o pe replace kcl monitor labs consult pulm
--- NOTE | 2021-07-25 20:44 | PC.NURSE ---
PT UNABLE TP
--- NOTE | 2021-07-25 20:45 | PC.NURSE ---
PT UNABLE TO PRODUCE SPUTUM AT THIS TIME. CUP LEFT AT BEDSIDE.
[2021-07-26] VITALS: BP 136/76; PULSE 66; RESP 18; TEMP 36.6; O2SAT 94
[2021-07-26 04:00] VITALS: BP 129/71; PULSE 63; RESP 20; TEMP 36.7; O2SAT 92
[2021-07-26 05:02] VITALS: BMI 29.5
--- NOTE | 2021-07-26 07:01 | PC.NURSE ---
pt AxOx4, has rested well t/o shift, has remained on 2L NC t/o shift with O2 sats 92-95%, lung sounds diminished with some expiratory wheezing noted, no complaints of SOA or pain
[2021-07-26 07:19] LABS: Alanine Aminotransferase 75 U/L (12-78); Albumin Level 2.9 g/dl (3.5-5.0); Alkaline Phosphatase 105 U/L (38-126); Aspartate Amino Transferase 48 U/L (14-36); Bilirubin,Direct 0.2 mg/dl (0.0-0.4); Bilirubin,Indirect 0.4 mg/dL (0.0-0.9); Bilirubin,Total 0.6 mg/dl (0.2-1.3); Bilirubin,Unconjugated 0.4 mg/dL (0.0-1.1); Total Protein,Serum 6.3 g/dl (6.3-8.2)
[2021-07-26 08:00] VITALS: BP 156/86; PULSE 98; RESP 18; TEMP 36.6; O2SAT 94
[2021-07-26 08:14] LABS: Basophils % 0.4 % (0.1-2.0); Eosinophils # 0.1 K/mm3 (0.0-0.4); Eosinophils % 0.9 % (0.1-12.0); Hematocrit 37.7 % (37.0-47.0); Hemoglobin 12.4 g/dL (12.2-16.2); Lymphocytes # 1.1 K/mm3 (0.7-4.5); Lymphocytes % 10.7 % (10-50); Mean Corpuscular Hemoglobin 31.6 pg (27.0-31.2); Mean Corpuscular Volume 95.8 fl (81-99); Mean Platelet Volume 9.8 fl (7.4-10.4); Monocytes # 0.6 K/mm3 (0.1-1.0); Neutrophils # 8.6 K/mm3 (1.8-7.8); Neutrophils % 82.1 % (37.0-80.0); Platelet Count 534 K/mm3 (142-424); Red Blood Count 3.93 M/mm3 (4.20-5.40); Red Cell Distribution Width 14.6 % (11.5-17.5); White Blood Count 10.4 K/mm3 (4.8-10.8)
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
--- NOTE | 2021-07-26 09:55 | SW/DCPLANNER ---
Addendum entered by Suzan Gonzales 07/26/21 12:41: I have arranged [employer] for this patient. Original Note: This patient will discharge home today. I spoke with Aminata from [facility] to confirm patient currently has home O2. Aminata stated that patient does not have a portable tank. I have faxed patient information/order down to [facility] and Aminata has stated that a portable tank will be delivered to patients room.
[2021-07-26 10:03] VITALS: O2SAT 87
--- NOTE | 2021-07-26 10:51 | HMH.PULMPN ---
Internal Medicine - PN: Subj *Date: 07/26/21 *Time: 10:51 Interval history: No acute respiratory events overnight. Exam - Constitutional Constitutional:: Present: no acute distress, comfortable - HENMT Exam HENMT: Present: normocephalic, atraumatic - Eye Exam Eyes:: Present: normal appearance both eyes and related structures - Respiratory Exam Respiratory:: Present: no respiratory distress, crackles - Cardiovascular Exam Cardiac:: Present: S1, S2 - GI Exam GI:: Present: soft - Skin Exam Skin: Present: warm, no rash, dry - Neurological Exam Neurological: Present: alert, awake, normal cognition - Extremities Exam Extremities: Present: no cyanosis, no clubbing, no edema - Psychiatric Exam Psychiatric: Present: normal affect Assessment and Plan (1) Pneumonia due to COVID-19 virus Status: Acute Category: Medical Code(s): U07.1 - COVID-19; J12.82 - Pneumonia due to coronavirus disease 2019 (2) Abnormal liver enzymes Status: Acute Category: Medical Code(s): R74.8 - Abnormal levels of other serum enzymes (3) Fibromyalgia Status: Chronic Category: Medical Code(s): M79.7 - Fibromyalgia (4) CAD (coronary artery disease) Status: Chronic Qualifiers: Coronary Disease-Associated Artery/Lesion type: unspecified vessel or lesion type [place] vs. transplanted heart: unspecified whether [place] or transplanted heart Associated angina: angina presence unspecified Category: Medical Code(s): I25.10 - Atherosclerotic heart disease of [place] coronary artery without angina pectoris (5) COPD (chronic obstructive pulmonary disease) Status: Chronic Qualifiers: COPD type: unspecified COPD Qualified Code(s): J44.9 - Chronic obstructive pulmonary disease, unspecified Category: Medical Code(s): J44.9 - Chronic obstructive pulmonary disease, unspecified (6) GERD (gastroesophageal reflux disease) Status: Chronic Qualifiers: Esophagitis presence: esophagitis presence not specified Qualified Code(s): K21.9 - Gastro-esophageal reflux disease without esophagitis Category: Medical Code(s): K21.9 - Gastro-esophageal reflux disease without esophagitis (7) Rib fracture Status: Acute Qualifiers: Encounter type: initial encounter Rib fracture type: multiple ribs Fracture type: closed Laterality: left Qualified Code(s): S22.42XA - Multiple fractures of ribs, left side, initial encounter for closed fracture Category: Medical Code(s): S22.39XA - Fracture of one rib, unspecified side, initial encounter for closed fracture - Assessment and plan all Dx Assessment and Plan for all problems:: #COPD: #COVID-19 pneumonia: History 66-year-old female greater than [id number] smoking she carries a diagnosis COPD, supposed to be on home inhaler therapy as per the patient presented to the hospital worsening respiratory distress and found to be COVID-19 positive. Patient also claims that she was tested positive for COVID-19 went to visit which were not confirmed at this point of time given complaining of respiratory distress we will proceed with treatment concerned this is a new infection and will confirm her prior COVID-19 status as we cannot rule out the positive testing here on this admission is a false positive. Chest x-ray bilateral patchy opacities possible atelectasis/streaky infiltrates. D-dimer mildly elevated 0.79. CRP elevated at 104. Patient respiratory status continued improved from admission. This morning on 2 L saturating 95%. She still complains of nausea and abdominal discomfort. Plan: -Continue Incentive spirometry upon discharge -Doxycycline for a total of 5 days - Advair 500 BID scheduled and DuoNebs every 6 hours PRN, patient can be discharged home inhaler therapy and will follow the patient in pulmonary clinic in 4 to 6 weeks - f/u Nasal MRSA PCR - Continue on remdesivir and dexamethasone for COVID-19 pneumonia until discharge #Thank you for invo
[2021-07-26 11:39] LABS: Chloride 103 mmol/L (98-107); Sodium 139 mmol/L (136-145)
[2021-07-26 11:40] LABS: Potassium 3.9 mmoL/L (3.5-5.1)
[2021-07-26 11:42] LABS: Anion Gap 13.9 mEq/L (5-15); Blood Urea Nitrogen 17 mg/dl (7-17); Carbon Dioxide 26 mmol/L (22.0-30.0); Creatinine Clearance Estimated 76 mL/min (50-200); Estimated Glomerular Filt Rate 84 ml/min (>60); GFR (African American) 102 ML/MIN (>60)
[2021-07-26 11:43] LABS: Calcium 8.7 mg/dl (8.4-10.2); Glucose 136 mg/dl (74-100)
== END 2021-07-26 13:01 | disposition home or self-care (01) | DRG 177 ==
LOC: ER 15:30 → 2ND 16:17
PROVIDERS: Internal Medicine Pulmonary Disease; Nurse Practitioner Family; Admitting Provider Family Medicine; Emergency Provider Emergency Medicine; PCP Physician Assistant; Visit Provider Family Medicine
DX: U07.1 COVID-19 (principal); J12.82 Pneumonia due to coronavirus disease 2019; S22.42XA Multiple fractures of ribs, left side, initial encounter for closed fracture; J44.0 Chronic obstructive pulmonary disease with (acute) lower respiratory infection; K21.9 Gastro-esophageal reflux disease without esophagitis; Z99.81 Dependence on supplemental oxygen; F41.9 Anxiety disorder, unspecified; I25.10 Atherosclerotic heart disease of native coronary artery without angina pectoris; E78.5 Hyperlipidemia, unspecified; M19.90 Unspecified osteoarthritis, unspecified site; M79.7 Fibromyalgia; E03.9 Hypothyroidism, unspecified; Z95.5 Presence of coronary angioplasty implant and graft; E87.6 Hypokalemia; R74.8 Abnormal levels of other serum enzymes; I10 Essential (primary) hypertension; Z86.14 Personal history of Methicillin resistant Staphylococcus aureus infection; Z87.891 Personal history of nicotine dependence; V89.2XXA Person injured in unspecified motor-vehicle accident, traffic, initial encounter
CPT/HCPCS: 36415; 71045; 71275; 80048; 80053; 80076; 82728; 82962; 83880; 84484; 85025; 85378; 86140; 87081; 93005; 93306; 94760; 94761; 96374; 96375; 99284; J2405; Q9967; U0003

== ENCOUNTER → 2021-08-27 10:48 | Outpatient (CLI) | payer MEDICARE, MEDICAID, SELFPAY ==
--- NOTE | 2021-08-27 10:52 | XR_ITS ---
PROCEDURE: XR RIBS LT MIN 3V W CXR1V CLINICAL INDICATION: rib fx, COVID pneumonia COMPARISON: CR XR CHEST PORTABLE from 07/23/[address] ANGIO CHEST PE PROTOCOL from 07/25/2021 FINDINGS: Frontal view of the chest shows bilateral multifocal areas of consolidation and atelectatic change consistent with Covid19 pneumonia which appears slightly worse in the left mid lung. Nondisplaced fractures involve the lateral aspect of the left third, 4th, 5th, 6th, 7th, 8th, and 9th ribs with developing callus formation. No displaced rib fracture apparent. No evidence of pneumothorax. IMPRESSION: Multiple healing left rib fractures. Bilateral pneumonia Dictated by: Jair Brownlee MD 08/27/2021 13:14 Jair Brownlee MD in [facility] 08/27/2021 13:14
--- NOTE | 2021-08-27 10:52 | XR_ITS ---
PROCEDURE: XR RIBS RT 2V CLINICAL INDICATION: rib fx COMPARISON: CT CT ANGIO CHEST PE PROTOCOL from 07/25/2021 CR XR RIBS LT MIN 3V W CXR1V from 08/27/2021 FINDINGS: Multiple views of the right ribs are obtained. Healing fractures involve the right 5th 6th, 7th and 8th ribs anteriorly. No evidence of pneumothorax. No displaced rib fracture apparent. IMPRESSION: Healing right rib fractures involving the 5th through 8th ribs anteriorly Dictated by: Jair Brownlee MD 08/27/2021 13:17 Jair Brownlee MD in [facility] 08/27/2021 13:17
== END ==
PROVIDERS: PCP Physician Assistant; Visit Provider Physician Assistant
DX: J12.82 Pneumonia due to coronavirus disease 2019; U07.1 COVID-19; S22.39XA Fracture of one rib, unspecified side, initial encounter for closed fracture; S22.49XA Multiple fractures of ribs, unspecified side, initial encounter for closed fracture
CPT/HCPCS: 71100; 71101

== ENCOUNTER → 2021-10-15 13:10 | Outpatient (CLI) | payer MEDICARE, MEDICAID, SELFPAY ==
[2021-10-15 14:20] VITALS: PULSE 69; PULSE 72
== END ==
PROVIDERS: PCP Physician Assistant; Visit Provider Internal Medicine Pulmonary Disease
DX: R06.00 Dyspnea, unspecified (principal)
CPT/HCPCS: 87070; 87205; 94060; 94618; 94640; 94726; 94729

== ENCOUNTER → 2021-10-15 18:12 | Outpatient (CLI) | payer MEDICARE, MEDICAID, SELFPAY | PROVIDERS: Visit Provider Physician Assistant | DX: R25.1 Tremor, unspecified (principal) | CPT/HCPCS: 87070; 87205 ==

== ENCOUNTER → 2021-12-26 13:33 | Outpatient (CLI) | payer MEDICARE, MEDICAID, SELFPAY ==
[2021-12-26 14:17] LABS: Basophils # 0.1 K/mm3 (0-0.2); Basophils % 1.1 % (0.1-2.0); Eosinophils # 0.1 K/mm3 (0.0-0.4); Eosinophils % 1.2 % (0.1-12.0); Hematocrit 47.2 % (37.0-47.0); Lymphocytes # 2.7 K/mm3 (0.7-4.5); Mean Corpuscular HGB Conc 31.8 g/dL (31.8-35.4); Mean Corpuscular Hemoglobin 30.6 pg (27.0-31.2); Mean Corpuscular Volume 96.1 fl (81-99); Mean Platelet Volume 7.2 fl (7.4-10.4); Monocytes # 0.3 K/mm3 (0.1-1.0); Monocytes % 3.2 % (1.7-9.3); Neutrophils # 6.2 K/mm3 (1.8-7.8); Neutrophils % 65.6 % (37.0-80.0); Platelet Count 326 K/mm3 (142-424); Red Blood Count 4.92 M/mm3 (4.20-5.40); White Blood Count 9.4 K/mm3 (4.8-10.8)
[2021-12-26 14:59] LABS: Alanine Aminotransferase 29 U/L (12-78); Albumin Level 4.3 g/dl (3.5-5.0); Albumin/Globulin Ratio 1.7 (1.1-1.8); Alkaline Phosphatase 126 U/L (38-126); Anion Gap 13.1 mEq/L (5-15); Aspartate Amino Transferase 29 U/L (14-36); Bilirubin,Total 0.4 mg/dl (0.2-1.3); Blood Urea Nitrogen 13 mg/dl (7-17); Carbon Dioxide 24 mmol/L (22.0-30.0); Chloride 107 mmol/L (98-107); Chol/HDL Ratio 4.7 (1-3.5); Cholesterol 199 mg/dl (140-200); Estimated Glomerular Filt Rate 56 ml/min (>60); GFR (African American) 67 ML/MIN (>60); Globulin 2.6 g/dL (1.3-3.2); Glucose 128 mg/dl (74-100); HDL Cholesterol 42 mg/dl (40-60); Potassium 4.1 mmoL/L (3.5-5.1); Sodium 140 mmol/L (136-145); Total Protein,Serum 6.9 g/dl (6.3-8.2); Triglycerides 275 mg/dl (30-150); VLDL Cholesterol 55 mg/dL (0-40)
[2021-12-26 15:11] LABS: Direct LDL Cholesterol 129.25 mg/dL (100-129)
[2021-12-26 15:49] LABS: Vitamin B12 285 pg/mL (239-931)
[2021-12-26 15:59] LABS: T4 (Thyroxine) 8.8 ug/dl (5.53-11.0)
[2021-12-26 16:14] LABS: Thyroid Stimulating Hormone 3.76 uIU/mL (0.465-4.68)
[2021-12-26 18:59] LABS: 25-OH Vitamin D, Total 25.8 ng/mL (30-100)
[2021-12-27 16:58] LABS: Hemoglobin A1C 6.6 % (4.0-6.0)
== END ==
PROVIDERS: PCP Physician Assistant; Visit Provider Physician Assistant
DX: L65.9 Nonscarring hair loss, unspecified (principal); R25.1 Tremor, unspecified; Z53.21 Procedure and treatment not carried out due to patient leaving prior to being seen by health care provider; E55.9 Vitamin D deficiency, unspecified; R74.8 Abnormal levels of other serum enzymes; R73.09 Other abnormal glucose
CPT/HCPCS: 36415; 80053; 80061; 82306; 82607; 83036; 84436; 84443; 85025

== ENCOUNTER → 2022-02-05 16:00 | Outpatient (CLI) | payer MEDICARE, MEDICAID, SELFPAY | PROVIDERS: Visit Provider Physician Assistant | DX: N39.0 Urinary tract infection, site not specified (principal) | CPT/HCPCS: 87086 ==

== ENCOUNTER → 2022-07-04 07:15 | Outpatient (CLI) | payer MEDICARE, MEDICAID, SELFPAY ==
[2022-07-04 18:51] LABS: Alanine Aminotransferase 30 U/L (12-78); Albumin Level 3.9 g/dl (3.5-5.0); Albumin/Globulin Ratio 1.6 (1.1-1.8); Alkaline Phosphatase 147 U/L (38-126); Anion Gap 12.7 mEq/L (5-15); Aspartate Amino Transferase 32 U/L (14-36); Blood Urea Nitrogen 9 mg/dl (7-17); Calcium 9.4 mg/dl (8.4-10.2); Carbon Dioxide 27 mmol/L (22.0-30.0); Chloride 105 mmol/L (98-107); Estimated Glomerular Filt Rate 45 ml/min (>60); GFR (African American) 54 ML/MIN (>60); Globulin 2.4 g/dL (1.3-3.2); Glucose 71 mg/dl (74-100); Potassium 3.7 mmoL/L (3.5-5.1); Sodium 141 mmol/L (136-145); Total Protein,Serum 6.3 g/dl (6.3-8.2)
[2022-07-04 18:52] LABS: Bilirubin,Total < 0.1 mg/dl (0.2-1.3)
== END ==
PROVIDERS: PCP Physician Assistant; Visit Provider Physician Assistant
DX: E11.9 Type 2 diabetes mellitus without complications (principal); F31.9 Bipolar disorder, unspecified; Z79.84 Long term (current) use of oral hypoglycemic drugs
CPT/HCPCS: 80053; 84443

== ENCOUNTER → 2022-09-25 10:45 | Outpatient (CLI) | payer MEDICARE, MEDICAID, SELFPAY ==
[2022-09-25 13:18] LABS: Basophils # 0.1 K/mm3 (0-0.2); Basophils % 1.2 % (0.1-2.0); Eosinophils # 0.1 K/mm3 (0.0-0.4); Eosinophils % 1.3 % (0.1-12.0); Hematocrit 41.3 % (37.0-47.0); Hemoglobin 12.6 g/dL (12.2-16.2); Mean Corpuscular HGB Conc 30.6 g/dL (31.8-35.4); Mean Corpuscular Hemoglobin 30.5 pg (27.0-31.2); Mean Corpuscular Volume 99.6 fl (81-99); Mean Platelet Volume 7.9 fl (7.4-10.4); Monocytes # 0.3 K/mm3 (0.1-1.0); Monocytes % 3.9 % (1.7-9.3); Neutrophils # 5.4 K/mm3 (1.8-7.8); Neutrophils % 68.6 % (37.0-80.0); Platelet Count 279 K/mm3 (142-424); Red Blood Count 4.14 M/mm3 (4.20-5.40); Red Cell Distribution Width 14.7 % (11.5-17.5); White Blood Count 7.9 K/mm3 (4.8-10.8)
[2022-09-25 13:26] LABS: Chloride 106 mmol/L (98-107); Sodium 145 mmol/L (136-145)
[2022-09-25 13:27] LABS: Potassium 3.9 mmoL/L (3.5-5.1)
[2022-09-25 13:29] LABS: Alanine Aminotransferase 29 U/L (12-78); Albumin Level 3.8 g/dl (3.5-5.0); Albumin/Globulin Ratio 1.5 (1.1-1.8); Alkaline Phosphatase 131 U/L (38-126); Anion Gap 10.9 mEq/L (5-15); Aspartate Amino Transferase 32 U/L (14-36); Blood Urea Nitrogen 10 mg/dl (7-17); Carbon Dioxide 32 mmol/L (22.0-30.0); Estimated Glomerular Filt Rate 63 ml/min (>60); GFR (African American) 76 ML/MIN (>60); Globulin 2.5 g/dL (1.3-3.2); Total Protein,Serum 6.3 g/dl (6.3-8.2)
[2022-09-25 13:30] LABS: Calcium 9.3 mg/dl (8.4-10.2); Glucose 85 mg/dl (74-100)
[2022-09-25 13:36] LABS: Bilirubin,Total 0.1 mg/dl (0.2-1.3)
[2022-09-25 14:44] LABS: Vitamin B12 883 pg/mL (239-931)
[2022-09-26 11:12] LABS: Rapid Plasma Reagin Ab Titer Non Reactive (NonRea<1:1)
[2022-09-27 05:17] LABS: Neisseria gonorrhoeae, NAA Negative (Negative)
[2022-10-19 23:13] LABS: HIV Screen 4th Generation wRfx Non Reactive
[2022-10-19 23:14] LABS: Hep A Ab, IgM Negative; Hepatitis B Core Antibody IgM Negative; Hepatitis B Surface Antigen Negative; Hepatitis C Antibody 0.1
== END ==
PROVIDERS: PCP Physician Assistant; Visit Provider Physician Assistant
DX: Z20.2 Contact with and (suspected) exposure to infections with a predominantly sexual mode of transmission (principal); Z11.3 Encounter for screening for infections with a predominantly sexual mode of transmission; R32 Unspecified urinary incontinence; G62.9 Polyneuropathy, unspecified; Z11.4 Encounter for screening for human immunodeficiency virus [HIV]; R74.8 Abnormal levels of other serum enzymes; F31.9 Bipolar disorder, unspecified; F22 Delusional disorders; Z79.899 Other long term (current) drug therapy; R53.83 Other fatigue
CPT/HCPCS: 80053; 80074; 82607; 85025; 86592; 86695; 86703; 86790; 87086; 87088; 87186; 87491; 87591; G0432

== ENCOUNTER → 2022-10-16 14:50 | Outpatient (CLI) | payer MEDICARE, MEDICAID, SELFPAY ==
--- NOTE | 2022-10-16 14:55 | CT_ITS ---
FINAL REPORT TECHNIQUE: Axial images were performed through the brain.This study was performed with techniques to keep radiation doses as low as reasonably achievable, (ALARA). Individualized dose reduction techniques using automated exposure control or adjustment of mA and/or kV according to the patient''s size were employed. CLINICAL HISTORY: encephalopathy FINDINGS: There is mild atrophy. The ventricles are normal in size for the degree of atrophy. There is no extra-axial fluid or midline shift. There is no evidence of acute hemorrhage or mass. There is no acute osseous abnormality. IMPRESSION: Atrophy. No acute intracranial process. Reviewed, Interpreted and Dictated by Vinay Correia MD Transcribed by Leon Romero Authenticated and [facility]
== END ==
PROVIDERS: PCP Physician Assistant; Visit Provider Nurse Practitioner Family
DX: E03.9 Hypothyroidism, unspecified (principal); G93.49 Other encephalopathy; R25.1 Tremor, unspecified; R41.3 Other amnesia; R79.89 Other specified abnormal findings of blood chemistry; Z79.899 Other long term (current) drug therapy
CPT/HCPCS: 70450

== ENCOUNTER → 2022-11-12 14:50 | Outpatient (CLI) | payer MEDICARE, MEDICAID, SELFPAY ==
[2022-11-12 16:28] LABS: Erythrocyte Sedimentation Rate 16 mm/hr (0-30)
[2022-11-12 18:01] LABS: Folate 4.01 ng/mL
[2022-11-14 09:30] LABS: Ceruloplasmin 25.2 mg/dL (19.0-39.0)
[2022-11-18 21:46] LABS: Antinuclear Antibodies (ANA) NEGATIVE
== END ==
PROVIDERS: PCP Physician Assistant; Visit Provider Nurse Practitioner Family
DX: E03.9 Hypothyroidism, unspecified (principal); G93.49 Other encephalopathy; R25.1 Tremor, unspecified; R41.3 Other amnesia; R79.89 Other specified abnormal findings of blood chemistry; Z79.899 Other long term (current) drug therapy; M79.7 Fibromyalgia
CPT/HCPCS: 36415; 82390; 82746; 84425; 84443; 85651; 86038; 86225; 86235

== ENCOUNTER → 2022-11-19 12:42 | Outpatient (CLI) | payer MEDICARE, MEDICAID, SELFPAY | LOC: RT 12:43 | PROVIDERS: PCP Physician Assistant; Visit Provider Nurse Practitioner Family | DX: G93.40 Encephalopathy, unspecified (principal); R41.3 Other amnesia; R25.1 Tremor, unspecified; R79.89 Other specified abnormal findings of blood chemistry; Z79.899 Other long term (current) drug therapy | CPT/HCPCS: 95816 ==

== ENCOUNTER → 2023-02-03 23:20 | Outpatient (CLI) | payer MEDICARE, MEDICAID, SELFPAY | PROVIDERS: PCP Physician Assistant; Visit Provider Physician Assistant | DX: M79.7 Fibromyalgia (principal); N39.0 Urinary tract infection, site not specified | CPT/HCPCS: 84443; 87086 ==

== ENCOUNTER → 2023-05-14 14:56 | Outpatient (CLI) | payer MEDICARE, MEDICAID, SELFPAY ==
[2023-05-14 18:39] LABS: Basophils % 0.4 % (0.1-2.0); Eosinophils # 0.1 K/mm3 (0.0-0.4); Eosinophils % 1.4 % (0.1-12.0); Hematocrit 48.5 % (37.0-47.0); Hemoglobin 14.9 g/dL (12.2-16.2); Lymphocytes # 2.6 K/mm3 (0.7-4.5); Lymphocytes % 30.1 % (10-50); Mean Corpuscular HGB Conc 30.7 g/dL (31.8-35.4); Mean Corpuscular Hemoglobin 30.5 pg (27.0-31.2); Mean Corpuscular Volume 99.2 fl (81-99); Mean Platelet Volume 9.1 fl (7.4-10.4); Monocytes # 0.3 K/mm3 (0.1-1.0); Monocytes % 3.1 % (1.7-9.3); Neutrophils # 5.7 K/mm3 (1.8-7.8); Platelet Count 314 K/mm3 (142-424); Red Blood Count 4.89 M/mm3 (4.20-5.40); Red Cell Distribution Width 14.7 % (11.5-17.5); White Blood Count 8.8 K/mm3 (4.8-10.8)
[2023-05-14 18:44] LABS: Alanine Aminotransferase 57 U/L (12-78); Albumin Level 4.4 g/dl (3.5-5.0); Albumin/Globulin Ratio 1.5 (1.1-1.8); Alkaline Phosphatase 118 U/L (38-126); Anion Gap 17.1 mEq/L (5-15); Aspartate Amino Transferase 68 U/L (14-36); Bilirubin,Total 0.6 mg/dl (0.2-1.3); Blood Urea Nitrogen 10 mg/dl (7-17); Calcium 9.7 mg/dl (8.4-10.2); Carbon Dioxide 27 mmol/L (22.0-30.0); Chloride 103 mmol/L (98-107); Chol/HDL Ratio 4.8 (1-3.5); Cholesterol 245 mg/dl (140-200); Estimated Glomerular Filt Rate 62 ml/min (>60); GFR (African American) 76 ML/MIN (>60); Glucose 173 mg/dl (74-100); HDL Cholesterol 51 mg/dl (40-60); Potassium 4.1 mmoL/L (3.5-5.1); Sodium 143 mmol/L (136-145); Total Protein,Serum 7.4 g/dl (6.3-8.2); Triglycerides 327 mg/dl (30-150); VLDL Cholesterol 65 mg/dL (0-40)
[2023-05-14 18:51] LABS: Hemoglobin A1C 7.5 % (4.0-6.0)
[2023-05-14 18:57] LABS: Direct LDL Cholesterol 123.46 mg/dL (100-129)
[2023-05-14 19:00] LABS: 25-OH Vitamin D, Total 22.1 ng/mL (30-100)
== END ==
PROVIDERS: PCP Physician Assistant; Visit Provider Physician Assistant
DX: E03.9 Hypothyroidism, unspecified (principal); E55.9 Vitamin D deficiency, unspecified; E11.9 Type 2 diabetes mellitus without complications; Z79.84 Long term (current) use of oral hypoglycemic drugs
CPT/HCPCS: 80053; 80061; 82306; 83036; 84443; 85025

== ENCOUNTER → 2023-05-22 10:53 | Outpatient (CLI) | payer MEDICARE, MEDICAID, SELFPAY ==
--- NOTE | 2023-05-22 11:24 | MM_ITS ---
PROCEDURE INFORMATION: Exam: US Right Breast, Complete MG Bilateral Diagnostic Breast Tomosynthesis Exam date and time: 05/22/2023 11:30 AM Age: 68 years old Clinical indication: Due for annual screening mammogram. Focal right breast pain in the 10 o'clock region of prior biopsy TECHNIQUE: Imaging protocol: Complete ultrasound of all four quadrants of the right breast and the retroareolar regions, including ultrasound of the axilla when performed. Bilateral Diagnostic tomosynthesis and 2D mammography including computer-aided detection (CAD) when performed. Unilateral or bilateral exam. COMPARISON: US BREAST NEEDLE LOC RT 08/20/2019 8:36 AM FINDINGS: MAMMOGRAPHY: There are scattered areas of fibroglandular density. Stable postoperative findings are present within the right breast No new mass, architectural distortion, or suspicious calcifications have developed to suggest malignancy. No axillary adenopathy. ULTRASOUND: In the region of palpable concern, 10 o'clock right breast 5 cm from nipple, there is a incidental 0.4 cm cyst and the expected postoperative scarring . No three-dimensional mass. No suspicious solid or cystic mass is present. No benign-appearing solid or cystic mass is present. No architectural distortion or shadowing is present. No axillary adenopathy is present. IMPRESSION: No mammographic or sonographic evidence of malignancy. Recommend annual screening mammography unless otherwise clinically indicated. ASSESSMENT: BI-RADS category 2: Benign
== END ==
LOC: RAD 10:54
PROVIDERS: PCP Physician Assistant; Visit Provider Physician Assistant
DX: N64.4 Mastodynia
CPT/HCPCS: 76641; 77062; 77066; G0279

== ENCOUNTER → 2023-05-27 23:35 | Outpatient (CLI) | payer MEDICARE, MEDICAID, SELFPAY | PROVIDERS: PCP Physician Assistant; Visit Provider Physician Assistant | DX: R10.9 Unspecified abdominal pain (principal) | CPT/HCPCS: 87086 ==

== ENCOUNTER 2023-06-06 11:21 | Emergency (ER) | payer MEDICARE, MEDICAID, SELFPAY ==
[2023-06-06 11:22] VITALS: BP 125/73; PULSE 80; RESP 16; TEMP 36.8; O2SAT 94; BMI 36.9
[2023-06-06 11:30] VITALS: BP 125/73; PULSE 71; O2SAT 93
--- NOTE | 2023-06-06 11:40 | XR_ITS ---
FINAL REPORT CLINICAL HISTORY: fall/injury. FINDINGS: AP, oblique and lateral views of the right foot were obtained. There is no prior exam for comparison. There is no acute fracture or dislocation. There is hallux valgus deformity of the 1st metatarsophalangeal joint with multi joint degenerative disease. Soft tissues are normal. IMPRESSION: Degenerative changes as above. Reviewed, Interpreted and Dictated by Elsie Nichols MD Transcribed by Bernadette Painter Authenticated and [facility]
--- NOTE | 2023-06-06 11:41 | XR_ITS ---
FINAL REPORT CLINICAL HISTORY: injury/pain FINDINGS: AP, oblique, and lateral views of the right ankle were obtained. There is no prior exam for comparison. There may be a tiny avulsion from the tip of the lateral malleolus. Mild soft tissue edema is seen. The ankle mortise is intact. IMPRESSION: Possible tiny avulsion from the tip of the lateral malleolus. Reviewed, Interpreted and Dictated by Elsie Nichols MD Transcribed by Bernadette Painter Authenticated and [facility]
[2023-06-06 12:01] VITALS: BP 104/65; PULSE 75; O2SAT 92
--- NOTE | 2023-06-06 12:35 | PC.NURSE ---
Right foot placed in orthopedic boot. Pt tolerated it well. Crutches also provided. Pt correctly demonstrated use while in ED.
[2023-06-06 12:36] VITALS: BP 104/65; PULSE 75; RESP 16; TEMP 36.8; O2SAT 92
--- NOTE | 2023-06-06 15:52 | HMH.EDGENADL ---
Discharge Plan Disposition Patient Disposition: Home, Self-Care Condition: Good Prescriptions Prescriptions: No Action nitroglycerin 0.4 mg tablet, sublingual 0.4 mg SUBLINGUAL Q5-15M PRN (Reason: chest pain) Qty: 25 0RF duloxetine 60 mg capsule,delayed release(DR/EC) See Rx Instructions .ROUTE .COMPLEX Qty: 90 3RF Dose Instruction: TAKE ONE CAPSULE BY MOUTH DAILY Rx Instructions: TAKE ONE CAPSULE BY MOUTH DAILY fluticasone propion-salmeterol 250-50 mcg/dose blister with device 1 inh INHALATION BID Qty: 60 12RF hydroxyzine HCl 50 mg tablet See Rx Instructions .ROUTE .COMPLEX Qty: 90 2RF Dose Instruction: TAKE ONE TABLET BY MOUTH EVERY EIGHT HOURS FOR ITCHING Rx Instructions: TAKE ONE TABLET BY MOUTH EVERY EIGHT HOURS FOR ITCHING levothyroxine 150 mcg tablet 150 mcg PO DAILY Qty: 90 3RF albuterol sulfate 90 mcg/actuation HFA aerosol inhaler See Rx Instructions .ROUTE .COMPLEX Qty: 8.5 2RF Dose Instruction: for COPD; Inhale 2 PUFFS every 4-6 hours As Needed for bronchospasm Rx Instructions: for COPD; Inhale 2 PUFFS every 4-6 hours As Needed for bronchospasm albuterol sulfate 1.25 mg/3 mL solution for nebulization 1.25 mg inhalation QID PRN (Reason: shortness of breath or wheezing) Qty: 90 2RF atorvastatin 80 mg tablet 80 mg PO QHS Qty: 90 3RF buspirone 15 mg tablet See Rx Instructions .ROUTE .COMPLEX Qty: 180 3RF Dose Instruction: TAKE ONE TABLET BY MOUTH TWICE DAILY FOR depression Rx Instructions: TAKE ONE TABLET BY MOUTH TWICE DAILY FOR depression glipizide 5 mg tablet extended release 24hr See Rx Instructions .ROUTE .COMPLEX Qty: 90 3RF Dose Instruction: TAKE ONE TABLET BY MOUTH DAILY Rx Instructions: TAKE ONE TABLET BY MOUTH DAILY metoprolol succinate 50 mg tablet extended release 24 hr 50 mg PO Patient Comments: TAKE ONE TABLET ONCE DAILY lamotrigine 100 mg tablet See Rx Instructions .ROUTE .COMPLEX Qty: 180 3RF Dose Instruction: TAKE ONE TABLET BY MOUTH TWICE DAILY Rx Instructions: TAKE ONE TABLET BY MOUTH TWICE DAILY lisinopril 2.5 mg tablet 2.5 mg PO DAILY Qty: 90 3RF omeprazole 40 mg capsule,delayed release(DR/EC) See Rx Instructions .ROUTE .COMPLEX Qty: 180 3RF Dose Instruction: TAKE ONE CAPSULE BY MOUTH TWICE DAILY FOR GERD Rx Instructions: TAKE ONE CAPSULE BY MOUTH TWICE DAILY FOR GERD potassium chloride 20 mEq tablet extended release 20 meq PO DAILY Qty: 30 2RF chlorhexidine gluconate 0.12 % mouthwash 15 ml BUCCAL BID Qty: 300 0RF permethrin [Elimite] 5 % cream 1 applic TOPICAL Q14D Qty: 60 0RF Rx Instructions: apply second treatment 14 days after first treatment if live lice remain gabapentin [Neurontin] 800 mg tablet 800 mg PO TID Qty: 90 2RF (DME) blood-glucose meter Kit See Rx Instructions .Route Qty: 1 0RF Rx Instructions: As directed (DME) lancets [Accu-Chek Softclix Lancets] Misc See Rx Instructions .Route Qty: 100 0RF Rx Instructions: Test glucose BID (DME) Blood Glucose Test Strip See Rx Instructions .Route Qty: 50 0RF Rx Instructions: Test glucose BID isosorbide mononitrate 120 mg tablet extended release 24 hr 120 mg PO DAILY Referrals Follow up/Referrals: Reina Mercer PA [Primary Care Provider] - See instructions Juarez Levine DO [Staff Physician] - See instructions (1-2 weeks for outpatient MRI if your symptoms are not improving ) Activity Restrictions/Add. Instructions Additional Instructions/Restrictions: After falling in a hole today you sustained an injury to your right foot and ankle your x-rays were negative for fracture or dislocation. This is consistent with a sprain. You may bear weight as tolerated with your boot and crutches. Please follow-up with your orthopedic surgeon or with Dr. Levine in 1 to 2 weeks if your sy
== END 2023-06-06 12:37 | disposition home or self-care (01) ==
PROVIDERS: Emergency Provider Student in an Organized Health Care Education/Training Program; PCP Physician Assistant
DX: S93.601A Unspecified sprain of right foot, initial encounter (principal); S93.401A Sprain of unspecified ligament of right ankle, initial encounter; W17.2XXA Fall into hole, initial encounter; F41.9 Anxiety disorder, unspecified; I25.10 Atherosclerotic heart disease of native coronary artery without angina pectoris; J44.9 Chronic obstructive pulmonary disease, unspecified; E78.5 Hyperlipidemia, unspecified; E03.9 Hypothyroidism, unspecified; K21.9 Gastro-esophageal reflux disease without esophagitis; E11.9 Type 2 diabetes mellitus without complications; F31.9 Bipolar disorder, unspecified; F17.210 Nicotine dependence, cigarettes, uncomplicated
CPT/HCPCS: 73610; 73630; 99284

== ENCOUNTER → 2023-06-18 08:58 | Outpatient (CLI) | payer MEDICARE, MEDICAID, SELFPAY ==
--- NOTE | 2023-06-18 08:58 | US_ITS ---
FINAL REPORT CLINICAL HISTORY: abdominal pain COMPARISON: None FINDINGS: Sonographic images of the abdomen were obtained. The liver is fatty infiltrated. The gallbladder has an unremarkable appearance without evidence of gallstones. There is no evidence of biliary ductal dilatation. The common hepatic duct measures 3 mm, which is within normal limits. The pancreas is partially obscured. The spleen size is normal. The right kidney measures 9.0 cm in length. The left kidney measures 9.7 cm in length. There is normal renal echogenicity. There is no evidence of hydronephrosis. The aorta has an unremarkable appearance. Limited images of the inferior vena cava are unremarkable. IMPRESSION: Fatty liver. Reviewed, Interpreted and Dictated by Marquez Richards III, MD Transcribed by Sydnee Staples Authenticated and [facility]
== END ==
PROVIDERS: PCP Physician Assistant; Visit Provider Physician Assistant
DX: R10.31 Right lower quadrant pain (principal)
CPT/HCPCS: 76700

== ENCOUNTER → 2023-07-10 10:05 | Outpatient (CLI) | payer MEDICARE, MEDICAID, SELFPAY ==
--- NOTE | 2023-07-10 10:05 | CT_ITS ---
FINAL REPORT TECHNIQUE: Axial images through the abdomen and pelvis were performed without contrast. This study was performed with techniques to keep radiation doses as low as reasonably achievable, (ALARA). Individualized dose reduction techniques using automated exposure control or adjustment of mA and/or kV according to the patient's size were employed. CLINICAL HISTORY: RLQ pain - ? incisional hernia COMPARISON: None FINDINGS: Abdomen: There is scarring present in the lung bases bilaterally. The liver parenchyma is homogeneous. The gallbladder is has been surgically resected. The pancreas and left adrenal are unremarkable. Calcified granulomas are present in the spleen. There is a nodule in the right adrenal gland measuring 1.5 cm and greatest dimension, measuring 16 Hounsfield units, favor adenoma. There are bilateral multiple small nonobstructing renal stones measuring up to 4 mm in size. No evidence of an anterior abdominal wall hernia is seen. Pelvis: The urinary bladder is unremarkable. A stimulator device is present in the pelvis. The uterus is eccentric to the left side. There is advanced degenerative change at the L5-S1 level. The appendix is not visualized. There is no pelvic mass or inflammation. No evidence of an anterior pelvic wall hernia is seen. IMPRESSION: No acute abnormality. Right adrenal nodule as described, favor adenoma. Multiple small nonobstructing renal stones measuring up to 4 mm in size. Reviewed, Interpreted and Dictated by Vinay Correia MD Transcribed by Marija Gamboa Authenticated and [facility]
== END ==
LOC: RAD 10:05
PROVIDERS: PCP Physician Assistant; Visit Provider Physician Assistant
DX: R10.31 Right lower quadrant pain (principal)
CPT/HCPCS: 74176

== ENCOUNTER → 2023-07-22 11:00 | Outpatient (CLI) | payer MEDICARE, MEDICAID, SELFPAY ==
[2023-07-22 19:03] LABS: HCG Qualitative, Serum Negative (Negative)
[2023-07-22 19:10] LABS: Basophils % 0.3 % (0.1-2.0); Eosinophils # 0.1 K/mm3 (0.0-0.4); Eosinophils % 0.6 % (0.1-12.0); Hematocrit 40.1 % (37.0-47.0); Hemoglobin 14.8 g/dL (12.2-16.2); Lymphocytes # 1.5 K/mm3 (0.7-4.5); Lymphocytes % 18.2 % (10-50); Mean Corpuscular Hemoglobin 35.7 pg (27.0-31.2); Mean Corpuscular Volume 96.4 fl (81-99); Mean Platelet Volume 9.2 fl (7.4-10.4); Monocytes # 0.3 K/mm3 (0.1-1.0); Neutrophils # 6.5 K/mm3 (1.8-7.8); Neutrophils % 76.9 % (37.0-80.0); Platelet Count 233 K/mm3 (142-424); Red Blood Count 4.16 M/mm3 (4.20-5.40); Red Cell Distribution Width 14.6 % (11.5-17.5); White Blood Count 8.4 K/mm3 (4.8-10.8)
[2023-07-22 19:51] LABS: Chloride 107 mmol/L (98-107); Potassium 4.2 mmoL/L (3.5-5.1); Sodium 139 mmol/L (136-145)
[2023-07-22 19:53] LABS: Blood Urea Nitrogen 10 mg/dl (7-17); Estimated Glomerular Filt Rate 55 ml/min (>60); GFR (African American) 67 ML/MIN (>60)
[2023-07-22 19:54] LABS: Alanine Aminotransferase 60 U/L (12-78); Albumin Level 3.8 g/dl (3.5-5.0); Albumin/Globulin Ratio 1.4 (1.1-1.8); Alkaline Phosphatase 171 U/L (38-126); Anion Gap 11.2 mEq/L (5-15); Aspartate Amino Transferase 41 U/L (14-36); Bilirubin,Total 0.5 mg/dl (0.2-1.3); Calcium 9.7 mg/dl (8.4-10.2); Carbon Dioxide 25 mmol/L (22.0-30.0); Globulin 2.8 g/dL (1.3-3.2); Glucose 110 mg/dl (74-100); Total Protein,Serum 6.6 g/dl (6.3-8.2)
[2023-07-24 12:14] LABS: Rapid Plasma Reagin Ab Titer Non Reactive (NonRea<1:1)
[2023-07-24 20:09] LABS: Neisseria gonorrhoeae, NAA Negative (Negative)
[2023-07-25 05:11] LABS: HIV Screen 4th Generation wRfx Non Reactive (Non Reactive)
== END ==
PROVIDERS: PCP Physician Assistant; Visit Provider Physician Assistant
DX: A64 Unspecified sexually transmitted disease; K21.9 Gastro-esophageal reflux disease without esophagitis; R10.30 Lower abdominal pain, unspecified; R10.2 Pelvic and perineal pain; R11.2 Nausea with vomiting, unspecified; Z11.3 Encounter for screening for infections with a predominantly sexual mode of transmission; Z11.4 Encounter for screening for human immunodeficiency virus [HIV]; Z11.8 Encounter for screening for other infectious and parasitic diseases; Z72.51 High risk heterosexual behavior
CPT/HCPCS: 80053; 84703; 85025; 86593; 86695; 86703; 86790; 87491; 87591; G0432

== ENCOUNTER 2023-12-02 19:17 | Outpatient (CLI) | payer MEDICARE, MEDICAID, SELFPAY ==
[2023-12-02 19:01] LABS: Basophils # 0.1 K/mm3 (0-0.2); Basophils % 0.7 % (0.1-2.0); Eosinophils # 0.1 K/mm3 (0.0-0.4); Eosinophils % 1.3 % (0.1-12.0); Hematocrit 51.4 % (37.0-47.0); Hemoglobin 16.5 g/dL (12.2-16.2); Lymphocytes # 2.5 K/mm3 (0.7-4.5); Lymphocytes % 28.9 % (10-50); Mean Corpuscular HGB Conc 32.1 g/dL (31.8-35.4); Mean Platelet Volume 9.4 fl (7.4-10.4); Monocytes # 0.4 K/mm3 (0.1-1.0); Monocytes % 4.5 % (1.7-9.3); Neutrophils # 5.5 K/mm3 (1.8-7.8); Neutrophils % 64.7 % (37.0-80.0); Platelet Count 264 K/mm3 (142-424); Red Blood Count 5.14 M/mm3 (4.20-5.40); White Blood Count 8.5 K/mm3 (4.8-10.8)
[2023-12-02 19:15] LABS: Chloride 103 mmol/L (98-107); Potassium 4.4 mmoL/L (3.5-5.1); Sodium 142 mmol/L (136-145)
[2023-12-02 19:17] LABS: Alanine Aminotransferase 36 U/L (12-78); Aspartate Amino Transferase 31 U/L (14-36); Blood Urea Nitrogen 11 mg/dl (7-17); Estimated Glomerular Filt Rate 55 ml/min (>60); GFR (African American) 67 ML/MIN (>60)
[2023-12-02 19:18] LABS: Albumin Level 4.6 g/dl (3.5-5.0); Albumin/Globulin Ratio 1.6 (1.1-1.8); Alkaline Phosphatase 139 U/L (38-126); Anion Gap 13.4 mEq/L (5-15); Bilirubin,Total 0.5 mg/dl (0.2-1.3); Calcium 9.8 mg/dl (8.4-10.2); Carbon Dioxide 30 mmol/L (22.0-30.0); Chol/HDL Ratio 7.2 (1-3.5); Cholesterol 279 mg/dl (140-200); Globulin 2.9 g/dL (1.3-3.2); Glucose 99 mg/dl (74-100); HDL Cholesterol 39 mg/dl (40-60); Total Protein,Serum 7.5 g/dl (6.3-8.2); Triglycerides 298 mg/dl (30-150); VLDL Cholesterol 60 mg/dL (0-40)
[2023-12-02 19:35] LABS: Free T4 (Free Thyroxine) 0.96 ng/dl (0.78-2.19)
[2023-12-02 21:14] LABS: Hemoglobin A1C 6.6 % (4.0-6.0)
== END 2023-12-02 23:59 ==
PROVIDERS: PCP Physician Assistant; Visit Provider Physician Assistant
DX: E11.9 Type 2 diabetes mellitus without complications (principal); K59.00 Constipation, unspecified; E03.9 Hypothyroidism, unspecified; Z79.84 Long term (current) use of oral hypoglycemic drugs
CPT/HCPCS: 80053; 80061; 83036; 84439; 84443; 85025